=== PATIENT | female | born 1950 | race Caucasian/White ===

== ENCOUNTER → 2017-03-25 | Outpatient (CLI) | payer OTHER ==
--- NOTE | 2017-03-25 15:47 | MAMMOGRAPHY REPORT ---
BILATERAL DIGITAL SCREENING MAMMOGRAM TOMOSYNTHESIS WITH CAD: 03/25/2017 CLINICAL HISTORY: Routine screening. Patient has no complaints. TECHNIQUE: Breast tomosynthesis in addition to standard 2D mammography was performed. Current study was also evaluated with a Computer Aided Detection (CAD) system. COMPARISON: Comparison is made to exams dated: 03/21/2016 mammogram, 03/20/2015 mammogram, 02/17/2014 mammogram, 02/11/2013 mammogram - [facility], 10/23/2010 mammogram, and 10/16/2008 mammogram. BREAST COMPOSITION: There are scattered areas of fibroglandular density in both breasts. FINDINGS: No suspicious masses, calcifications, or areas of architectural distortion are noted in e ither breast. There has been no significant interval change compared to prior exams. IMPRESSION: ACR BI-RADS CATEGORY 1: NEGATIVE There is no mammographic evidence of malignancy. A 1 year screening mammogram is recommended. The p atient will receive written notification of the results. Approximately 10% of breast cancers are not detected with mammography. A negative mammographic repor t should not delay biopsy if a clinically suggestive mass is present. Elza Palma M.D. ah/:03/25/2017 15:14:54 Marine Engine Driver: Shania RAYGOZA(Cristina)(M), [facility] letter sent: Normal 1/2 BI-RADS Code: ACR BI-RADS Category 1: Negative
== END | disposition home or self-care (01) ==
LOC: C.MAMM 10:19
PROVIDERS: ATTEND Family Medicine
DX: Z12.31 Encounter for screening mammogram for malignant neoplasm of breast (principal)

== ENCOUNTER 2020-04-04 13:17 | Observation (INO) ==
[2020-04-04] MEDS ORDERED: KETOROLAC TROMETHAMINE 15 MG/ML VIAL IV STA (15:14)
[2020-04-04] MEDS ORDERED: SODIUM CHLORIDE 0.9% 1000ML 1,000 ML IV ONE (15:14)
[2020-04-04 16:04] LABS: Basophils # (auto) 0.02 K/uL (0-0.2); Basophils % (auto) 0.3 %; Eosinophils % (auto) 1.3 %; Hematocrit (blood only) 39.3 % (37-47); Hemoglobin 12.9 g/dL (12.0-16.0); Immature Granulocytes # (auto) 0.01 K/uL (0.00-0.02); Immature Granulocytes % (auto) 0.1 %; Lymphocytes # (auto) 1.71 K/uL (1.2-3.4); Lymphocytes % (auto) 22.6 %; Mean Corpuscular Hemoglobin 28.6 pg (25-34); Mean Corpuscular Hgb Conc 32.8 g/dL (32-36); Mean Corpuscular Volume 87.1 fL (80-100); Mean Platelet Volume 10.1 fL (7.4-10.4); Monocytes % (auto) 7.9 %; Neutrophils # (auto) 5.13 K/uL (1.4-6.5); Neutrophils % (auto) 67.8 %; Platelet Count 176 K/uL (130-400); RDW Coefficient of Variation 13.3 % (11.5-14.5); RDW Standard Deviation 42.8 fL (36.4-46.3); Red Blood Count 4.51 M/uL (4.2-5.4); White Blood Count 7.57 K/uL (4.8-10.8)
[2020-04-04 16:09] LABS: Appearance Urine Clear (Clear); Bacteria Urine Automated Negative (Negative); Bilirubin Urine Negative (Negative); Blood Urine Negative (Negative); Color Urine Yellow; Epithelial Cell Urine Auto 20-30 /lpf (0-5); Glucose Urine UA Negative (Negative); Ketones Urine Negative (Negative); Leukocyte Esterase Urine 1+ (Negative); Nitrite Urine Negative (Negative); Protein Urine Negative (Negative); RBC Urine Automated 0-4 /hpf (0-4); Urobilinogen Urine Negative (Negative)
[2020-04-04 16:26] LABS: Albumin Level 3.9 gm/dl (3.4-5.0); BUN Creatinine Ratio 16.2 (10-20); Bilirubin Direct 0.1 mg/dl (0-0.2); Calcium 9.7 mg/dl (8.5-10.1); Creatinine Clr Calc Pharmacy 65.2 ml/min; Est GFR (African American) 94.3; Est GFR (Non-African American) 81.3
[2020-04-04 16:29] LABS: Albumin Globulin Ratio 1.1 (0.9-2); Bilirubin,Total 0.4 mg/dl (0.2-1); Globulin 3.7 gm/dl (2.5-4.0); Total Protein 7.6 gm/dl (6.4-8.2)
[2020-04-04] MEDS ORDERED: IOVERSOL 100ml IV PRN (16:42)
--- NOTE | 2020-04-04 17:05 | CT Scan Report ---
CT abd pelvis IV con only CLINICAL HISTORY: Left lower quadrant abdominal pain COMPARISON STUDY: None. TECHNIQUE: The patient was scanned in a dynamic helical fashion during intravenous administration of 93 cc of Optiray 320. A dose lowering technique was utilized adhering to the principles of ALARA. CT DOSE: 774.25 mGycm FINDINGS: Lower chest: There are minor dependent atelectatic changes. Liver: The contrast-enhanced liver is normal in size, contour, and attenuation. There is no intrahepa tic biliary ductal dilatation. The hepatic veins and portal veins are patent. Gallbladder: Unremarkable. Spleen: Normal in size and attenuation. Pancreas: Unremarkable. Adrenal glands: Unremarkable. Kidneys: There is 16mm right renal cyst. Bowel: There are no transition zones to indicate bowel obstruction. The appendix appears normal. Ther e is moderately extensive colonic diverticulosis. At the level of the distal descending colon, there is infiltration of the pericolonic fat surrounding a small droplet of gas. Findings are likely second sagar to acute focal diverticulitis. Epiploic appendagitis with secondary involvement of the diverticul um could appear similar Peritoneum: There is no intraperitoneal free air or abdominal ascites. There is a tiny fat-containing umbilical hernia. Vasculature: The abdominal aorta is normal in course and caliber. Adenopathy: None. Pelvic viscera: There are partially calcified small uterine fibroids. Skeletal structures: No destructive osseous lesions are seen. IMPRESSION: 1. No evidence of bowel obstruction. No evidence of free air 2. Normal appendix 3. Colonic diverticulosis. At the level of the distal descending colon there is infiltration of the p ericolonic fat surrounding a small droplet of gas. The findings are likely secondary to acute diverti culitis. Epiploic appendagitis with secondary involvement of a diverticulum could appear similar ACT 112: Negative or not required by law. Electronically signed by: Miguel Cornelius M.D. 04/04/2020 5:04 PM
[2020-04-04] MEDS ORDERED: CIPROFLOXACIN / D5W 400 MG/200 ML BAG IV STA (17:55)
[2020-04-04] MEDS ORDERED: metroNIDAZOLE 500 MG/100 ML BAG IV STA (17:55)
[2020-04-04] MEDS ORDERED: ACETAMINOPHEN 1,000 MG/100 ML VIAL IV STA (18:28)
--- NOTE | 2020-04-04 19:00 | History & Physical Report ---
Date of Service April 04, 2020 Assessment & Plan (1) Acute diverticulitis: Continue ciprofloxacin IV 400mg BID + metronidazole IV 500mg TID NPO currently given concern for possible microperforation on CT. Can have clear liquid diet in AM as long as no increasing abdominal pain, vitals stable and afebrile overnight. LR 125ml/hr (2) Type 2 diabetes mellitus: Hold metformin Insulin sliding scale for correction only given glucose on admission 96 BSG ACHS HbA1C in AM (3) Hypothyroidism: Continue levothyroxine 50mcg PO daily (4) Hypertension: Continue lisinopril 10mg PO daily (5) Anxiety: Continue Fluoxetine 10mg PO daily, Lorazepam 0.5mg PO BID PRN for anxiety (6) Shoulder pain, right: Outpatient shoulder XR by report of patient negative for fracture. Suspect she has some shoulder impingement on exam but complete rotator cuff tear unlikely given recovery to full ROM on exam today. Follow up with PCP (7) Strain of adductor muscle of thigh: Outpatient pelvic XR negative for fracture per patient. Follow up with PCP (8) DVT prophylaxis: SCDs overnight If staying beyond tomorrow consider chemical prophylaxis Admission and Anticipated Discharge Date Admission Date: 04/04/2020 History of Present Illness Chief Complaint: Left lower quadrant abdominal pain Primary Care Provider: Phyllis Barker MD Aminah Mcconnell is a 69 year old female who presents to the ER at the advice of her PCP due to ongoing right shoulder, hip and left lower quadrant abdominal pain. Her initial symptoms started with shoulder and hip pain after tripping 6 days ago. Her shoulder has slowly been recovering and now has full ROM, outpatient XR performed by her PCP negative for fracture per patient report. No LOC, headache, confusion, loss of concentration from fall. Did not hit her head. Her abdominal pain started on Thursday. No precipitating events. LLQ with no radiation. Severe 9/10 pain initially and went to see PCP and ordered pelvic and shoulder XRs due to the fall but no abdominal imaging at that time. Persistent aching pain since. No unusual foods. No fever, chills, nausea, vomiting, change in bowels, melena or blood in stool. Last colonoscopy was 2 years previously which she reports was normal Allergies Allergy/AdvReac Type Severity Reaction Status Date / Time No Known Allergies Allergy Unverified 04/04/20 15:20 Home Medications Home Medications Medication Instructions Recorded Confirmed Type aspirin 81 mg PO DAILY 04/04/20 04/04/20 History atorvastatin 20 mg PO DAILY 04/04/20 04/04/20 History cetirizine 5 mg PO DAILY 04/04/20 04/04/20 History eletriptan 40 mg PO DAILY PRN 04/04/20 04/04/20 History ergocalciferol (vitamin D2) 1,250 mcg PO MONTHLY 04/04/20 04/04/20 History [Vitamin D2] fluoxetine 10 mg PO DAILY 04/04/20 04/04/20 History levothyroxine 50 mcg PO DAILY 04/04/20 04/04/20 History lisinopril 10 mg PO DAILY 04/04/20 04/04/20 History lorazepam 0.5 mg PO BID PRN 04/04/20 04/04/20 History magnesium 250 mg PO DAILY 04/04/20 04/04/20 History metformin 500 mg PO DAILY 04/04/20 04/04/20 History metronidazole 1 applic TOPICAL BID 04/04/20 04/04/20 History potassium chloride 10 meq PO DAILY 04/04/20 04/04/20 History Past Med/Surg History Medical History Anxiety Hypothyroidism Type 2 diabetes mellitus Social History Preferred Language: Ch[place]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 Beliefs That Will Affect Care: None Current Living Situation: Spouse Other Information That Helps Us Care for You: No Feels Safe at Home: Yes Safety Concerns: Feels Safe At This Time Smoking Status: Never smoker Hx Alcohol Use: No Hx Substance Use: No Review of Systems Review of Systems: All systems reviewed & are unremarkable except as noted in HPI & below Physical Exam Constitutional: WD/WN, vitals as above Eyes: + anicteric sclerae; normal pupil size ENMT: external ear and nose normal, oropharynx normal Neck: trachea midline, no thyromegaly Respiratory: normal respiratory effort, lungs clear to auscultation Cardiovascular: RRR, no murmur, no edema Gastrointestinal (Abdomen): Percussion/Palpation: + abdomen tender (LLQ on deep palpation); no guarding and abdomen not rigid Musculoskeletal: Full ROM of right shoulder with minimal pain. "hip" pain described appears to be her adductors muscles on palpation, no groin pain on hip int/ext rotation Skin: no rashes, warm and dry Neurologic: moves all extremities and awake; not confused Psychiatric: A+Ox3, euthymic affect Results & Data Results & Data ([facility]) Vital Signs (Past 12 Hours) Vital Signs Temp Pulse Pulse Resp BP BP Pulse Ox 04/04/20 18:22 60 16 159/98 H 99 04/04/20 16:45 70 18 135/87 98 04/04/20 15:40 95 04/04/20 14:44 72 18 138/77 99 04/04/20 13:20 36.8 C 74 18 134/[address] abd pelvis IV con only IMPRESSION: 1. No evidence of bowel obstruction. No evidence of free air 2. Normal appendix 3. Colonic diverticulosis. At the level of the distal descending colon there is infiltration of the pericolonic fat surrounding a small droplet of gas. The findings are likely secondary to acute diverticulitis. Epiploic appendagitis with secondary involvement of a diverticulum could appear similar Code Status & VTE Plan Code Status Full VTE Prophylaxis Plan VTE Prophylaxis will be ordered: Yes Reason for no VTE mechanical prophylaxis: Treatment not indicated PG Care Time/CCT Total # of Minutes Spent Total Time Spent with Patient: Total time spent is greater than 50% in coordination of care (as documented) at patient's floor/unit and/or counseling patient: Coding Level of Care Code 52406 Initial Inpt Care Lvl 2 Diagnoses Acute diverticulitis K57.92 Type 2 diabetes mellitus E11.9 Hypothyroidism E03.9 Hypertension I10 Anxiety F41.9 Shoulder pain, right M25.511 Strain of adductor muscle of thigh S76.219A DVT prophylaxis Z29.9
[2020-04-04] MEDS ORDERED: LORazepam 0.5 MG TAB PO PRN (20:02)
[2020-04-04] MEDS ORDERED: GLUCOSE 40% GEL 15 GM TUBE PO PRN (20:40)
[2020-04-04] MEDS ORDERED: CARBOHYDRATES FOR HYPOGLYCEMIA PO PRN (20:40)
[2020-04-04] MEDS ORDERED: GLUCAGON FOR INJ 1 MG VIAL SQ PRN (20:40)
[2020-04-04] MEDS ORDERED: DEXTROSE 50% 50 ML SYRINGE IV PRN (20:40)
[2020-04-04] MEDS ORDERED: GLUCOSE 10 TABS/TUBE PO PRN (20:40)
[2020-04-04] MEDS ORDERED: ONDANSETRON INJ 2 MG/ML 2 ML VIAL IV PRN (20:46)
[2020-04-04] MEDS ORDERED: ALUMINUM/MAGNESIUM SUSP 30 ML UDC PO PRN (20:46)
[2020-04-04] MEDS ORDERED: POLYETHYLENE (MIRALAX) 17 GM PACK PO PRN (20:46)
[2020-04-04] MEDS ORDERED: MAGNESIUM HYDROXIDE SUSP 30 ML UDC PO PRN (20:46)
[2020-04-04] MEDS ORDERED: OXYCODONE HCL IR 5 MG TAB (IMMEDIATE RELEASE) PO PRN (20:46)
[2020-04-04] MEDS ORDERED: INSULIN ASPART 100 UNITS/ML 3 ML PEN SC SCH (21:00)
[2020-04-04] MEDS: LACTATED RINGER'S 1,000 ML IV SCH (21:53)
[2020-04-04] MEDS ORDERED: Nursing to Pharmacy Communication SCH (23:30)
--- NOTE | 2020-04-04 23:42 | Emergency Department Note ---
Impression & Plan Acute diverticulitis, Abdominal pain, acute, left lower quadrant ED Provider Note NAME: RADHA ZUÑIGA AGE: 69 SEX: F ARRIVES VIA: Walk-In INFORMANT: Patient, ED PROVIDER(S): Immanuel Thakkar MD CHIEF COMPLAINT: abdominal pain PLAN: Disposition: Admit MEDICAL DECISION MAKING: The patient is a pleasant 69 y/o woman with a pmhx of HTN, DM2, hypothyroidism who presents to the emergency department with with LLQ abdominal pain that has been on going since Thursday per HPI. Of note, symptoms occur in the setting of having had a mechanical fall on last week onto her right side where she immediately had right sided hip and shoulder pain, which was evaluated by her pcp with reassuring xrays and bloodwork on Thursday. Since Thursday her LLQ pain has worsening. She denies fevers, chills, cough, congestion, n/v/d, urinary sx. On arrival the patient is in NAD, AFVSS. She exhibts mild LLQ tenderness without guarding or rebound. WBC, H/H, platelets wnl. Chemistry without acidosis. LFTs and electrolytes unremarkable. UA negative for infection. CT of the abdomen and pelvis demonstrates findings c/w diverticulitis given patients exam with infiltration of the pericolonic fat surrounding a small droplet of gas at the level of the distal descending colon. Thus, given possibility of microperforation, will admit for IV antibiotics and monitoring of sx. Ordered for Cipro/Flagyl. Patient is agreeable with this. Case d/w Dr. Ross [facility] hospitalist, who will evaluate the patient for admission. Triage Nursing notes reviewed and agree them. Prior medical records reviewed Vital Signs: reviewed and remarkable for no significant abnormalities Differential diagnosis: Appendicitis, ovarian cyst, ovarian torsion, ectopic , TOA, PID, infections, diverticulitis, UTI, obstruction, mesenteric ischemia, aortic pathology, inflammatory bowel disease, renal colic, PUD, pancreatitis, biliary pathology, hernia, volvulus, constipation, as well as other pathologies. ER treatment provided: See below. Diagnostics interpreted by me: Cardiac Monitoring: An order for continuous cardiac monitoring was placed and demonstrated NSR, 72 bpm, no ectopy. Laboratory studies: See below Imaging studies: CT abd pelvis IV con only CLINICAL HISTORY: Left lower quadrant abdominal pain COMPARISON STUDY: None. TECHNIQUE: The patient was scanned in a dynamic helical fashion during intravenous administration of 93 cc of Optiray 320. A dose lowering technique was utilized adhering to the principles of ALARA. CT DOSE: 774.25 mGycm FINDINGS: Lower chest: There are minor dependent atelectatic changes. Liver: The contrast-enhanced liver is normal in size, contour, and attenuation. There is no intrahepatic biliary ductal dilatation. The hepatic veins and portal veins are patent. Gallbladder: Unremarkable. Spleen: Normal in size and attenuation. Pancreas: Unremarkable. Adrenal glands: Unremarkable. Kidneys: There is 16mm right renal cyst. Bowel: There are no transition zones to indicate bowel obstruction. The appendix appears normal. There is moderately extensive colonic diverticulosis. At the level of the distal descending colon, there is infiltration of the pericolonic fat surrounding a small droplet of gas. Findings are likely secondary to acute focal diverticulitis. Epiploic appendagitis with secondary involvement of the diverticulum could appear similar Peritoneum: There is no intraperitoneal free air or abdominal ascites. There is a tiny fat-containing umbilical hernia. Vasculature: The abdominal aorta is normal in course and caliber. Adenopathy: None. Pelvic viscera: There are partially calcified small uterine fibroids. Skeletal structures: No destructive osseous lesions are seen. IMPRESSION: 1. No evidence of bowel obstruction. No evidence of free air 2. Normal appendix 3. Colonic diverticulosis. At the level of the distal descending colon there is infiltration of the pericolonic fat surrounding a small droplet of gas. The findings are likely secondary to acute diverticulitis. Epiploic appendagitis w ith secondary involvement of a diverticulum could appear similar ACT 112: Negative or not required by law. Consultation(s): Case d/w Dr. Ross [facility] hospitalist, who will evaluate the patient for admission. HPI: The patient is a pleasant 69 y/o woman with a pmhx of HTN, DM2, hypothyroidism who presents to the emergency department with with LLQ abdominal pain that has been on going since Thursday per HPI. Of note, symptoms occur in the setting of having had a mechanical fall on last week onto her right side where she immediately had right sided hip and shoulder pain, which was evaluated by her pcp with reassuring xrays and bloodwork on Thursday. Since Thursday her LLQ pain has worsening. She denies fevers, chills, cough, congestion, n/v/d, urinary sx. ROS: See above HPI for pertinent positives & negatives. A total of 10 systems reviewed and were otherwise negative. PAST MEDICAL HISTORY:See Below PAST SURGICAL HISTORY:See Below FAMILY HISTORY:See Below SOCIAL HISTORY:See Below HOME MEDICATIONS:See Below ALLERGIES:See Below VITALS:See Below PHYSICAL EXAMINATION: GENERAL: Awake, alert, relatively well-appearing, in no distress HENT: Normocephalic, atraumatic. Oropharynx with dry mucous membranes and otherwise unremarkable. EYES: Normal conjunctiva. Sclera non-icteric. NECK: Supple. No nuchal rigidity. FROM. No JVD. RESPIRATORY: Clear to auscultation. CARDIAC: Regular rate, normal rhythm. Extremities warm and well perfused. Pulses equal. ABDOMEN: Soft, non-distended. Mild LLQ tenderness to palpation. No rebound or guarding. No masses. RECTAL: Deferred. MUSCULOSKELETAL: Chest examination reveals no tenderness. The back is symmetrical on inspection without obvious abnormality. There is no CVA tenderness to palpation. No joint edema. LOWER EXTREMITIES: Calves are equal size bilaterally and non-tender. No edema. No discoloration. NEURO: Normal sensorium. No sensory or motor deficits noted. SKIN: No rash or jaundice noted. ED COURSE: Immanuel Thakkar MD Past Med/Surg History Medical History Anxiety Hypothyroidism Type 2 diabetes mellitus Social History Preferred Language: Tajik 911 Telecommunicator Required: No Beliefs That Will Affect Care: None Current Living Situation: Spouse Other Information That Helps Us Care for You: No Feels Safe at Home: Yes Safety Concerns: Feels Safe At This Time Smoking Status: Never smoker Hx Alcohol Use: No Hx Substance Use: No Allergies Allergies Allergy/AdvReac Type Severity Reaction Status Date / Time No Known Allergies Allergy Unverified 04/04/20 15:20 Home Meds Home Medications Medication Instructions Recorded Confirmed aspirin 81 mg PO DAILY 04/04/20 04/04/20 atorvastatin 20 mg PO DAILY 04/04/20 04/04/20 cetirizine 5 mg PO DAILY 04/04/20 04/04/20 eletriptan 40 mg PO DAILY PRN 04/04/20 04/04/20 ergocalciferol (vitamin D2) 1,250 mcg PO MONTHLY 04/04/20 04/04/20 [Vitamin D2] fluoxetine 10 mg PO DAILY 04/04/20 04/04/20 levothyroxine 50 mcg PO DAILY 04/04/20 04/04/20 lisinopril 10 mg PO DAILY 04/04/20 04/04/20 lorazepam 0.5 mg PO BID PRN 04/04/20 04/04/20 magnesium 250 mg PO DAILY 04/04/20 04/04/20 metformin 500 mg PO DAILY 04/04/20 04/04/20 metronidazole 1 applic TOPICAL BID 04/04/20 04/04/20 potassium chloride 10 meq PO DAILY 04/04/20 04/04/20 Results & Data (ED) Vital Signs Vital Signs - 24 hr 04/04/20 13:20 04/04/20 14:44 04/04/20 15:40 Temperature 36.8 C Temperature Source Oral Pulse Rate 74 Pulse Rate [Left Finger] 72 Respiratory Rate 18 18 Respiratory Effort / Characteristics Non-Labored Spontaneous Respiratory Depth Normal Normal Blood Pressure 134/81 Blood Pressure [Left Arm] 138/77 Blood Pressure Mean 98 Blood Pressure Mean [Left Arm] 97 Pulse Oximetry 96 99 95 Oxygen Delivery Method Room Air Room Air Room Air Sepsis Recent Fever Within 48 Hours No Sepsis New/Unexplained Change in Mental Status No Sepsis Action Taken by Nursing No Action Required 04/04/20 16:45 04/04/20 18:22 Temperature Temperature Source Pulse Rate Pulse Rate [Left Finger] 70 60 Respiratory Rate 18 16 Respiratory Effort / Characteristics Respiratory Depth Blood Pressure Blood Pressure [Left Arm] 135/87 159/98 H Blood Pressure Mean Blood Pressure Mean [Left Arm] 103 118 Pulse Oximetry 98 99 Oxygen Delivery Method Room Air Room Air Sepsis Recent Fever Within 48 Hours Sepsis New/Unexplained Change in Mental Status Sepsis Action Taken by Nursing Laboratory Data Attestation: I reviewed the patient's lab results. Result diagrams: 04/04/20 15:45 04/04/20 15:45 Lab Results 04/04/20 04/04/20 04/04/20 Range/Units 15:45 15:45 15:50 WBC 7.57 (4.8-10.8) K/uL RBC 4.51 (4.2-5.4) M/uL Hgb 12.9 (12.0-16.0) g/dL Hct 39.3 (37-47) % MCV 87.1 (80-100) fL MCH 28.6 (25-34) pg MCHC 32.8 (32-36) g/dL RDW Std Deviation 42.8 (36.4-46.3) fL RDW Coeff of Valentin 13.3 (11.5-14.5) % Plt Count 176 (130-400) K/uL MPV 10.1 (7.4-10.4) fL Immature Gran % (Auto) 0.1 % Neut % (Auto) 67.8 % Lymph % (Auto) 22.6 % Stanley % (Auto) 7.9 % Eos % (Auto) 1.3 % Baso % (Auto) 0.3 % Immature Gran # (Auto) 0.01 (0.00-0.02) K/uL Neut # (Auto) 5.13 (1.4-6.5) K/uL Lymph # (Auto) 1.71 (1.2-3.4) K/uL Stanley # (Auto) 0.60 H (0.11-0.59) K/uL Eos # (Auto) 0.10 (0-0.5) K/uL Baso # (Auto) 0.02 (0-0.2) K/uL Sodium 137 (136-145) mmol/L Potassium 4.0 (3.5-5.1) mmol/L Chloride 104 (98-107) mmol/L Carbon Dioxide 28 (21-32) mmol/L Anion Gap 5.0 (3-11) BUN 12 (7-18) mg/dl Creatinine 0.75 (0.6-1.2) mg/dl Est Cr Clr Drug Dosing 65.2 ml/min Est GFR ( Amer) 94.3 Est GFR (Non-Af Amer) 81.3 BUN/Creatinine Ratio 16.2 (10-20) Glucose 91 (70-99) mg/dl Calcium 9.7 (8.5-10.1) mg/dl Total Bilirubin 0.4 (0.2-1) mg/dl Direct Bilirubin 0.1 (0-0.2) mg/dl AST 14 L (15-37) U/L ALT 34 (12-78) U/L Alkaline Phosphatase 89 (45-117) U/L Total Protein 7.6 (6.4-8.2) gm/dl Albumin 3.9 (3.4-5.0) gm/dl Globulin 3.7 (2.5-4.0) gm/dl Albumin/Globulin Ratio 1.1 (0.9-2) Lipase 150 (73-393) U/L Urine Color Yellow Urine Appearance Clear (Clear) Urine pH 5.0 (4.5-7.5) Ur Specific [place] 1.020 (1.000-1.030) Urine Protein Negative (Negative) Urine Glucose (UA) Negative (Negative) Urine Ketones Negative (Negative) Urine Blood Negative (Negative) Urine Nitrite Negative (Negative) Urine Bilirubin Negative (Negative) Urine Urobilinogen Negative (Negative) Ur Leukocyte Esterase 1+ H (Negative) Urine WBC (Auto) 10-30 H (0-5) /hpf Urine RBC (Auto) 0-4 (0-4) /hpf U Hyaline Cast (Auto) 1-5 (0-5) /lpf U Epithel Cells (Auto) 20-30 H (0-5) /lpf Urine Bacteria (Auto) Negative (Negative) Administered Medications Lactated Ringer's (Lr) 1,000 mls @ 125 mls/hr IV .Q8H [facility]AID Stop: 05/04/20 20:44 Last Infusion: 04/05/20 02:14 Dose: 0 mls/hr Documented by: [id number] Admin: 04/04/20 21:53 Dose: 125 mls/hr Documented by: [id number] Metronidazole (Flagyl) 500 mg in 100 mls @ 100 mls/hr IV Q8H [facility] Stop: 04/12/20 01:59 Last Admin: 04/05/20 02:14 Dose: 100 mls/hr Documented by: [id number] Insulin Aspart (Novolog Flexpen) 0 units SC Q6 [facility]AID Stop: 05/05/20 00:00 Last Admin: 04/05/20 00:48 Dose: Not Given Documented by: [id number] Cosigned by: [id number] Ioversol (Optiray 320 100ml) 93 ml IV ONCE PRN PRN Reason: Interaction Checking Stop: 04/08/20 16:41 Last Admin: 04/04/20 16:42 Dose: 93 ml Documented by: [id number] Discontinued Medications Sodium Chloride (Nss 1000ml) 1,000 mls @ 999 mls/hr IV .Q1H1M ONE Stop: 04/04/20 16:14 Last Infusion: 04/04/20 18:32 Dose: 0 mls/hr Documented by: [id number] Infusion: 04/04/20 17:52 Dose: 0 mls/hr Documented by: [id number] Infusion: 04/04/20 16:45 Dose: 0 mls/hr Documented by: [id number] Admin: 04/04/20 15:45 Dose: 999 mls/hr Documented by: [id number] Ciprofloxacin (Cipro) 400 mg in 200 mls @ 100 mls/hr IV NOW STA; Protocol Stop: 04/04/20 19:54 Last Infusion: 04/04/20 20:55 Dose: 0 mls/hr Documented by: [id number] Admin: 04/04/20 18:14 Dose: 100 mls/hr Documented by: [id number] Metronidazole (Flagyl) 500 mg in 100 mls @ 100 mls/hr IV NOW STA Stop: 04/04/20 18:54 Last Infusion: 04/04/20 20:25 Dose: 0 mls/hr Documented by: [id number] Admin: 04/04/20 18:14 Dose: 100 mls/hr Documented by: [id number] Acetaminophen (Ofirmev) 1,000 mg in 100 mls @ 400 mls/hr IV NOW STA Stop: 04/04/20 18:42 Last Infusion: 04/04/20 20:24 Dose: 0 mls/hr Documented by: [id number] Admin: 04/04/20 18:44 Dose: 400 mls/hr Documented by: [id number] Insulin Aspart (Novolog Flexpen) 0 units SC ACHS [facility]AID Stop: 05/04/20 20:59 Last Admin: 04/04/20 21:54 Dose: Not Given Documented by: [id number] Cosigned by: [id number] Ketorolac Tromethamine (Toradol) 15 mg IV NOW STA Stop: 04/04/20 15:15 Last Admin: 04/04/20 15:45 Dose: 15 mg Documented by: [id number] Blood Pressure Blood Pressure Findings: Normal blood pressure Discharge Plan Visit Data *Final* Discharge Date/Time: 04/04/20 19:39 Chief Complaint: Fall Stated Complaint: FALL,LANDED ON RT SIDE,SHARP PAIN ON LEFT SIDE ED Provider: Immanuel Thakkar Discharge Problem: Acute diverticulitis, Abdominal pain, acute, left lower quadrant Patient Disposition: Admitted As Inpatient Discharge Instructions Interventions: ED Discharge Assessment Last Done: 04/04/20 19:39
[2020-04-05] MEDS: INSULIN ASPART 100 UNITS/ML 3 ML PEN SC SCH ×5 (00:48→20:42)
[2020-04-05] MEDS: metroNIDAZOLE 500 MG/100 ML BAG IV SCH ×3 (02:14→18:11)
[2020-04-05] MEDS: ACETAMINOPHEN 325 MG TAB PO PRN ×2 (06:09→10:43)
[2020-04-05] MEDS: LEVOTHYROXINE SODIUM 50 MCG TABLET PO SCH (06:09)
[2020-04-05] MEDS: CIPROFLOXACIN / D5W 400 MG/200 ML BAG IV SCH ×2 (06:12→18:11)
[2020-04-05] MEDS: LACTATED RINGER'S 1,000 ML IV SCH ×3 (06:12→16:13)
[2020-04-05 07:19] LABS: Basophils # (auto) 0.01 K/uL (0-0.2); Basophils % (auto) 0.2 %; Eosinophils # (auto) 0.12 K/uL (0-0.5); Eosinophils % (auto) 2.1 %; Hematocrit (blood only) 34.6 % (37-47); Hemoglobin 11.6 g/dL (12.0-16.0); Immature Granulocytes # (auto) 0.02 K/uL (0.00-0.02); Immature Granulocytes % (auto) 0.3 %; Lymphocytes # (auto) 1.39 K/uL (1.2-3.4); Lymphocytes % (auto) 23.8 %; Mean Corpuscular Hemoglobin 29.1 pg (25-34); Mean Corpuscular Hgb Conc 33.5 g/dL (32-36); Mean Corpuscular Volume 86.7 fL (80-100); Mean Platelet Volume 10.1 fL (7.4-10.4); Monocytes # (auto) 0.34 K/uL (0.11-0.59); Monocytes % (auto) 5.8 %; Neutrophils # (auto) 3.96 K/uL (1.4-6.5); Neutrophils % (auto) 67.8 %; Platelet Count 156 K/uL (130-400); RDW Coefficient of Variation 13.2 % (11.5-14.5); RDW Standard Deviation 42.1 fL (36.4-46.3); Red Blood Count 3.99 M/uL (4.2-5.4); White Blood Count 5.84 K/uL (4.8-10.8)
[2020-04-05 07:31] LABS: Albumin Level 3.2 gm/dl (3.4-5.0); BUN Creatinine Ratio 15.8 (10-20); Calcium 8.5 mg/dl (8.5-10.1); Creatinine Clr Calc Pharmacy 64.1 ml/min; Est GFR (African American) 95.8; Est GFR (Non-African American) 82.7; Potassium 4.2 mmol/L (3.5-5.1)
[2020-04-05 07:32] LABS: Estimated Average Glucose 134 mg/dl; Hemoglobin A1C 6.3 % (4.5-5.6)
[2020-04-05 07:37] LABS: Bilirubin,Total 0.5 mg/dl (0.2-1); Globulin 3.1 gm/dl (2.5-4.0); Total Protein 6.3 gm/dl (6.4-8.2)
[2020-04-05] MEDS: ATORVASTATIN 20 MG TAB PO SCH (09:21)
[2020-04-05] MEDS: ASPIRIN 81 MG ECTAB PO SCH (09:21)
[2020-04-05] MEDS: FLUOXETINE HCL 10 MG CAP PO SCH (09:22)
[2020-04-05] MEDS: CETIRIZINE HCL 10 MG TABLET PO SCH (09:22)
[2020-04-05] MEDS: MAGNESIUM OXIDE 400 MG TAB PO SCH (09:22)
[2020-04-05] MEDS: lisinopriL 10 MG TAB PO SCH (09:22)
--- NOTE | 2020-04-05 14:12 | Hospitalist Progress Note ---
Date of Service April 05, 2020 Assessment & Plan (1) Acute diverticulitis: Continue ciprofloxacin IV 400mg BID + metronidazole IV 500mg TID Given clear liquid diet this afternoon, if she tolerates will advance in the morning D/C IVF (2) Type 2 diabetes mellitus: Hold metformin Insulin sliding scale for correction only given glucose on admission 96 BSG ACHS A1c 6.3 - will need to follow up with pcp (3) Hypothyroidism: Continue levothyroxine 50mcg PO daily (4) Hypertension: Continue lisinopril 10mg PO daily (5) Anxiety: Continue Fluoxetine 10mg PO daily, Lorazepam 0.5mg PO BID PRN for anxiety (6) Shoulder pain, right: Outpatient shoulder XR by report of patient negative for fracture. Suspect she has some shoulder impingement on exam but complete rotator cuff tear unlikely given recovery to full ROM on exam today. Follow up with PCP (7) Strain of adductor muscle of thigh: Outpatient pelvic XR negative for fracture per patient. Follow up with PCP (8) DVT prophylaxis: SCDs overnight, encourage ambulation Admission and Anticipated Discharge Date Admission Date: April 04, 2020 Subjective Ms. Mcconnell is feeling better today, less painful, feels hungry. Bowel movement this afternoon per chart ROS Constitutional: no chills, aches, sweats or fever Respiratory: no sob,cough, sputum, or wheezing Cardiac: no chest pain, palpitations, edema, orthopnea or lightheadedness GI: no abdominal pain, nausea, vomiting, diarrhea or constipation : no dysuria or hesitancy Extremities: no joint pain or weakness Skin: no rash All other systems reviewed and negative Physical Exam Physical Exam: General: no distress Eyes: normal inspection, PERLL Respiratory: chest non tender, clear to auscultation, normal breath sounds, no respiratory distress, no accessory muscle use Cardiac: regular rate and rhythm, no rub or gallop, no murmur, no edema, no jvd GI/: active bowel sounds, no abd pain or tenderness, soft, non distended Extremities: normal range of motion, normal strength, non tender Neuro/Psych: alert and oriented x 3, normal mood and affect Skin: normal color, dry Results & Data Results & Data ([facility] [place]) Vital Signs (Past 12 Hours) Vital Signs Temp Pulse Resp BP Pulse Ox 04/05/20 07:44 36.5 C 57 L 16 126/76 93 PG Care Time/CCT Total # of Minutes Spent Total Time Spent with Patient: Total time spent is greater than 50% in coordination of care (as documented) at patient's floor/unit and/or counseling patient: Coding Level of Care Code 05313 Subseq Hosp Care Lvl 2 Diagnoses Acute diverticulitis K57.92 Type 2 diabetes mellitus E11.9 Hypothyroidism E03.9 Hypertension I10 Anxiety F41.9 Shoulder pain, right M25.511 Strain of adductor muscle of thigh S76.219A DVT prophylaxis Z29.9
[2020-04-05] MEDS ORDERED: Nursing to Pharmacy Communication SCH (15:15)
[2020-04-05] MEDS ORDERED: KETOROLAC TROMETHAMINE 15 MG/ML VIAL IV PRN (19:00)
[2020-04-05] MEDS: SUMAtriptan succinate 25 MG TAB PO PRN (20:40)
[2020-04-06] MEDS: metroNIDAZOLE 500 MG/100 ML BAG IV SCH ×2 (02:47→10:09)
[2020-04-06] MEDS: LEVOTHYROXINE SODIUM 50 MCG TABLET PO SCH (06:23)
[2020-04-06] MEDS: CIPROFLOXACIN / D5W 400 MG/200 ML BAG IV SCH (06:44)
[2020-04-06] MEDS: SUMAtriptan succinate 25 MG TAB PO PRN (07:38)
[2020-04-06] MEDS: INSULIN ASPART 100 UNITS/ML 3 ML PEN SC SCH ×2 (08:32→12:12)
[2020-04-06] MEDS: lisinopriL 10 MG TAB PO SCH (08:40)
[2020-04-06] MEDS: ASPIRIN 81 MG ECTAB PO SCH (08:40)
[2020-04-06] MEDS: CETIRIZINE HCL 10 MG TABLET PO SCH (08:40)
[2020-04-06] MEDS: MAGNESIUM OXIDE 400 MG TAB PO SCH (08:40)
[2020-04-06] MEDS: ATORVASTATIN 20 MG TAB PO SCH (08:42)
[2020-04-06] MEDS: FLUOXETINE HCL 10 MG CAP PO SCH (08:42)
[2020-04-06 08:53] LABS: Basophils # (auto) 0.03 K/uL (0-0.2); Basophils % (auto) 0.6 %; Eosinophils # (auto) 0.11 K/uL (0-0.5); Hematocrit (blood only) 39.3 % (37-47); Hemoglobin 12.6 g/dL (12.0-16.0); Immature Granulocytes # (auto) 0.01 K/uL (0.00-0.02); Immature Granulocytes % (auto) 0.2 %; Lymphocytes # (auto) 1.28 K/uL (1.2-3.4); Lymphocytes % (auto) 23.5 %; Mean Corpuscular Hgb Conc 32.1 g/dL (32-36); Mean Corpuscular Volume 87.3 fL (80-100); Mean Platelet Volume 10.1 fL (7.4-10.4); Monocytes # (auto) 0.22 K/uL (0.11-0.59); Neutrophils % (auto) 69.7 %; Platelet Count 180 K/uL (130-400); RDW Coefficient of Variation 13.2 % (11.5-14.5); RDW Standard Deviation 42.3 fL (36.4-46.3); White Blood Count 5.45 K/uL (4.8-10.8)
[2020-04-06] MEDS ORDERED: KETOROLAC TROMETHAMINE 15 MG/ML VIAL IV ONE (09:25)
[2020-04-06 09:35] LABS: Albumin Globulin Ratio 1.1 (0.9-2); Albumin Level 3.6 gm/dl (3.4-5.0); BUN Creatinine Ratio 7.7 (10-20); Bilirubin,Total 0.4 mg/dl (0.2-1); Calcium 9.1 mg/dl (8.5-10.1); Creatinine Clr Calc Pharmacy 57.8 ml/min; Est GFR (African American) 84.6; Globulin 3.2 gm/dl (2.5-4.0); Potassium 3.6 mmol/L (3.5-5.1); Total Protein 6.8 gm/dl (6.4-8.2)
--- NOTE | 2020-04-06 11:56 | Discharge Summary ---
Date of Service April 06, 2020 Admission HPI Per Admitting Provider Aminah Mcconnell is a 69 year old female who presents to the ER at the advice of her PCP due to ongoing right shoulder, hip and left lower quadrant abdominal pain. Her initial symptoms started with shoulder and hip pain after tripping 6 days ago. Her shoulder has slowly been recovering and now has full ROM, outpatient XR performed by her PCP negative for fracture per patient report. No LOC, headache, confusion, loss of concentration from fall. Did not hit her head. Her abdominal pain started on Thursday. No precipitating events. LLQ with no radiation. Severe 9/10 pain initially and went to see PCP and ordered pelvic and shoulder XRs due to the fall but no abdominal imaging at that time. Persistent aching pain since. No unusual foods. No fever, chills, nausea, vomiting, change in bowels, melena or blood in stool. Last colonoscopy was 2 years previously which she reports was normal Principal Diagnosis Diverticulitis Discharge Exam Constitutional WD/WN, vitals as above Respiratory normal respiratory effort, lungs clear to auscultation Cardiovascular RRR, no murmur, no edema Gastrointestinal (Abdomen) Inspection/Auscultation: abdomen normal to inspection and normal bowel sounds; abdomen not distended Percussion/Palpation: abdomen soft; abdomen nontender Musculoskeletal no cyanosis or clubbing, extremities motor strength 5/5 Skin no rashes, warm and dry Neurologic CN's II-XI intact bilaterally, moves all extremities and awake Psychiatric A+Ox3, euthymic affect Discharge Data Allergies Allergy/AdvReac Type Severity Reaction Status Date / Time No Known Allergies Allergy Unverified 04/04/20 15:20 Consultations 04/04/20 18:28 ED Decision to Admit Stat Ordered Studies 04/04/20 15:16 CT abd pelvis IV con only Stat Hospital Course (1) Acute diverticulitis: Continue ciprofloxacin IV 400mg BID + metronidazole IV 500mg TID Given clear liquid diet this afternoon, if she tolerates will advance in the morning Slowly advance diet from low fiber to high fiber (2) Type 2 diabetes mellitus: Hold metformin while inpatient - can resume tomorrow Insulin sliding scale for correction while inpatient BSG ACHS A1c 6.3 (3) Hypothyroidism: Continue levothyroxine 50mcg PO daily (4) Hypertension: Continue lisinopril 10mg PO daily (5) Anxiety: Continue Fluoxetine 10mg PO daily, Lorazepam 0.5mg PO BID PRN for anxiety (6) Shoulder pain, right: Outpatient shoulder XR by report of patient negative for fracture. Suspect she has some shoulder impingement on exam but complete rotator cuff tear unlikely given recovery to full ROM on exam today. Follow up with PCP (7) Strain of adductor muscle of thigh: Outpatient pelvic XR negative for fracture per patient. No fracture on abdome/pelvis CT Follow up with PCP Some pain in that area today - relieved with dose of Toradol (8) Migraine headache: Unilateral throbbing frontal headache over right side. Mild nausea associated. Given sumatriptan with some relief and then 1 dose of Toradol when headache returned this morning which relieved her pain. (9) DVT prophylaxis: SCDs overnight, encourage ambulation Total Time Total Time Spent Total Time Spent (In Minutes): greater than 30 minutes Discharge Plan Discharge Items Patient Disposition: Home - Self-Care Reason For Visit: ACUTE DIVERTICULITIS Discharge Diagnosis: Diverticulitis Activity: Resume your previous activity Activity Comment: gradually as tolerated Non-emergency contact: Primary Care Provider Call non-emergency contact if: you have any medication questions, your symptoms worsen and you have a fever Follow-up/Referrals: Phyllis Barker MD [Primary Care Provider] - (Follow up with your primary care provider in 1 week ) Diet: Carb Consistent or DM2 Addtl Attending Provider Instructions: (1) Acute diverticulitis: Continue ciprofloxacin twice per day + metronidazole 500mg three times per day. See enclosed information on discharge instructions for diverticulitis. You will eat a low fiber diet over the next days and advance to high fiber slowly as you are able to tolerate (2) Type 2 diabetes mellitus: You can resume your metformin tomorrow morning to avoid interaction with the c ontrast dye given during your CT Your A1c was 6.3 (3) Migraine headache You were given sumatriptan and toradol for your migraine today. Your should wait until tomorrow to take anymore eletriptan. You can take your Excedrin Migraine if you have further pain or just Tylenol 1000 mg if the aspirin in the Excedrin is hard on your stomach. Pending Studies at Discharge: No Stand-Alone Forms: My [facility] [employer], Smoking Cessation Medications and DC Order Prescriptions: New ciprofloxacin HCl 500 mg tablet 500 mg PO BID Qty: 14 RF: 0 metronidazole 500 mg tablet 500 mg PO TID Qty: 21 RF: 0 Continued metformin 500 mg tablet 500 mg PO DAILY RF: 0 atorvastatin 20 mg tablet 20 mg PO DAILY RF: 0 levothyroxine 50 mcg tablet 50 mcg PO DAILY RF: 0 fluoxetine 10 mg capsule 10 mg PO DAILY RF: 0 potassium chloride 10 mEq Capsule, Extended Release 10 meq PO DAILY RF: 0 cetirizine 10 mg Tablet 5 mg PO DAILY RF: 0 aspirin 81 mg Tablet,Delayed Release (Dr/Ec) 81 mg PO DAILY RF: 0 lorazepam 0.5 mg Tablet 0.5 mg PO BID PRN (Reason: Anxiety) RF: 0 lisinopril 10 mg Tablet 10 mg PO DAILY RF: 0 metronidazole 0.75 % Cream 1 applic TOPICAL BID RF: 0 magnesium 250 mg Tablet 250 mg PO DAILY RF: 0 ergocalciferol (vitamin D2) [Vitamin D2] 1,250 mcg (50,000 unit) Capsule 1,250 mcg PO MONTHLY RF: 0 eletriptan 40 mg Tablet 40 mg PO DAILY PRN (Reason: Headache) RF: 0 Discharge Orders: Discharge Order (Routine); Ordered 04/06/20 Ordered By: Blossom Milan/Other Patient Handouts: Discharge Instructions for Diverticulitis, Diabetes Carbs Fats Protein, ED Diet High Fiber Admission Data Admit Date/Time: 04/04/20 19:23 Attending Provider: Bro Greene Admit Provider: Jonn Ross Primary Care Provider: Phyllis Barker Other Providers: Bro Greene Other Interventions: Discharge Summary Assessment (RN) Last Done: 04/06/20 12:00 DC Date/Time DO NOT enter until pt leaves facility: 04/06/20 14:05 Supervising Physician Co-Signing Physician Notes I supervised Blossom Villasenor NP on this patient's care. I examined the patient today independently of her. I discussed the plan of care with her with the plan being as written in her note except for any following changes/exceptions: None. In no distress today. Ready to go home. Had a BM today. Coding Level of Care Code D/C Day Management >30 mins Diagnoses Acute diverticulitis K57.92 Type 2 diabetes mellitus E11.9 Hypothyroidism E03.9 Hypertension I10 Anxiety F41.9 Shoulder pain, right M25.511 Strain of adductor muscle of thigh S76.219A Migraine headache G43.909 DVT prophylaxis Z29.9
[2020-04-29] MEDS ORDERED: ERGOCALCIFEROL 50,000 UNITS CAP PO SCH (09:00)
== END 2020-04-06 14:05 | disposition home or self-care (01) ==
LOC: ED 13:17 → SUATTDRO 19:23 → 3N 19:23 → INTOOBSV 19:23 → 3N 19:39

== ENCOUNTER 2024-12-18 09:06 | Inpatient (IN) ==
--- NOTE | 2024-12-18 09:20 | Emergency Department Note ---
Impression & Plan Lumbar back pain, Acute lumbar radiculopathy ED Provider Note CHIEF COMPLAINT: Back pain HISTORY OF PRESENT ILLNESS: This 74-year-old female patient presents to the emergency department via private vehicle for evaluation of severe pain in the right back, leg, and knee. She reports she has been seen by orthopedics for this pain. She states she has a history of a traumatic fall, which caused the pain. She states the pain is so severe she is currently unable to tolerate it. She is pending MRI of her low spine on 01/04. She denies loss of sensation, numbness or tingling, loss of bowel or bladder, or numbness or tingling in the groin. She reports the pain begins in the right lumbar spine and extends to the right buttocks, and down the lateral aspect of the right leg. She reports full strength. She is neurovascularly intact. REVIEW OF SYSTEMS: A review of systems was performed with positives and pertinent negatives listed in the history of present illness. All other systems were reviewed and are negative. ALLERGIES: See below MEDICATIONS: See below PMH: See below PHYSICAL EXAM: VITALS: Vitals are noted on the nurse's note and reviewed by myself. Vital signs stable. GENERAL: 74-year-old female, in no acute distress, nondiaphoretic, well- developed well-nourished. SKIN: The skin was without rashes, erythema, edema, or bruising. HEAD: Normocephalic atraumatic. HEART: Regular rate and rhythm without murmurs gallops or rubs. LUNGS: Clear to auscultation bilaterally without wheezes, rales or rhonchi. No retractions or accessory muscle use. ABDOMEN: Positive bowel sounds x 4. Soft, nontender, without masses or organomegaly. Aguirre sign negative. No guarding or rebound tenderness. MUSCULOSKELETAL: TTP right paraspinous lumbar region, extending into right buttocks. Full ROM, right hip, right knee, right ankle. Sensation intact to dull and sharp, RLE. DP pulse intact. Strength 5/5. NEURO: Patient was alert and oriented to person place and time. No focal neurological deficits. MEDICAL DECISION MAKING: The patient is a 74-year-old female who arrives to the emergency department for evaluation of the above-stated complaint. CT imaging of the lumbar spine was obtained which per my interpretation shows multilevel degenerative changes, slightly asymmetric on the right with L3 nerve root impingement noted L2-L3. Disc bulge asymmetric to the right with mild central canal and right foraminal orifice narrowing L3-L4. Mild abutment of the origin and subarticular right L4 nerve root. Minimal far lateral left L4 nerve root abutment. The patient was provided IM Toradol, IM dexamethasone, topical Lidoderm, oral methocarbamol, and oral acetaminophen. Upon reevaluation she reports no reduction in her pain. An attempt to add oral tramadol was made, however it was unsuccessful to control her pain. She was offered IV morphine for pain control, which only helped slightly. At that time admission was considered pending MRI imaging results. MRI imaging shows advanced multilevel degenerative changes of the lumbar spine resulting in spinal canal and neural foraminal stenosis. I spoke with Dr Ayala from ortho spine, who stated if the patient is able to ambulate, and pain is under control she may be discharged home and follow-up on an outpatient basis. When I spoke with the patient regarding the plan of care, she reported her pain had returned and was severe. She was provided a another dose of oral tramadol, and a dose of oral acetaminophen, and ibuprofen. She is unable to ambulate, or sit comfortably. Admission is indicated at this time. I spoke with case management to facilitate contact with the [facility] hospitalist group. Dr. Ross agreed to evaluate the patient, and accept the patient under his care for hospital admission. Please refer to his documentation as well as Dr. Ayala's documentation for further patient workup and care. DIFFERENTIAL DIAGNOSIS: Musculoskeletal, disc herniation, fracture, metastatic disease, cord compression, discitis, sciatica, cauda equina, infection, aortic disease, renal colic, gastrointestinal, as well as other pathologies. The patient's case was discussed with Dr. Benjamin, who agreed with my evaluation and treatment plan. The chart was completed utilizing [employer] Speech voice recognition software. Grammatical errors, random word insertions, pronoun errors, and incomplete sentences are an occasional consequence of this system due to software limitations, ambient noise, and hardware issues. Any formal questions or concerns about the content, text, or information contained within the body of this dictation should be directly addressed to the physician for clarification. 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 Beliefs That Will Affect Care: None Current Living Situation: Spouse Feels Safe at Home: Yes Assistive Devices: None Allergies Allergies Allergy/AdvReac Type Severity Reaction Status Date / Time No Known Allergies Allergy Unverified 12/18/24 10:43 Home Meds Home Medications Medication Instructions Recorded Confirmed aspirin 81 mg tablet,delayed 81 mg PO Q OTHER DAY 04/04/20 12/18/24 release atorvastatin 20 mg tablet 20 mg PO DAILY 04/04/20 12/18/24 cetirizine 10 mg tablet 10 mg PO DAILY allergies 04/04/20 12/18/24 levothyroxine 50 mcg tablet 50 mcg PO DAILY 04/04/20 12/18/24 lisinopril 10 mg tablet 10 mg PO DAILY 04/04/20 12/18/24 magnesium 250 mg tablet 500 mg PO DAILY 04/04/20 12/18/24 gabapentin 300 mg capsule 300 mg PO BID 12/18/24 12/18/24 prednisone 20 mg tablet 20 mg PO UD 12/18/24 12/18/24 Results & Data (ED) Vital Signs Vital Signs - 24 hr 12/18/24 09:10 12/18/24 10:28 12/18/24 11:46 Temperature 36.5 C Temperature Source Oral Pulse Rate 76 Pulse Rate [Right Finger] 63 60 Pulse Rhythm [Right Finger] Regular Regular Pulse Strength [Right Finger] Normal Normal Respiratory Rate 18 18 16 Respiratory Effort / Characteristics Non-Labored Spontaneous Non-Labored Spontaneous Respiratory Depth Normal Normal Respiratory Pattern Regular Regular Blood Pressure 182/83 H Blood Pressure [Right Arm] 171/128 H 152/92 H Blood Pressure Mean 116 Blood Pressure Mean [Right Arm] 142 112 Blood Pressure Position Sitting Blood Pressure Position [Right Arm] Sitting Sitting Pulse Oximetry 98 96 99 Oxygen Delivery Method Room Air Room Air Sepsis Recent Fever Within 48 Hours No Sepsis New/Unexplained Change in Mental Status No Sepsis Action Taken by Nursing No Action Required 12/18/24 14:00 12/18/24 15:30 12/18/24 16:30 Temperature Temperature Source Pulse Rate Pulse Rate [Right Finger] 67 67 66 Pulse Rhythm [Right Finger] Regular Pulse Strength [Right Finger] Normal Respiratory Rate 16 18 16 Respiratory Effort / Characteristics Non-Labored Spontaneous Non-Labored Spontaneous Respiratory Depth Normal Normal Respiratory Pattern Regular Blood Pressure Blood Pressure [Right Arm] 164/134 H 128/93 174/99 H Blood Pressure Mean Blood Pressure Mean [Right Arm] 144 104 124 Blood Pressure Position Blood Pressure Position [Right Arm] Sitting Pulse Oximetry 94 94 94 Oxygen Delivery Method Room Air Room Air Room Air Sepsis Recent Fever Within 48 Hours Sepsis New/Unexplained Change in Mental Status Sepsis Action Taken by Nursing 12/18/24 18:23 Temperature Temperature Source Pulse Rate Pulse Rate [Right Finger] 68 Pulse Rhythm [Right Finger] Pulse Strength [Right Finger] Respiratory Rate 17 Respiratory Effort / Characteristics Respiratory Depth Respiratory Pattern Blood Pressure Blood Pressure [Right Arm] 173/84 H Blood Pressure Mean Blood Pressure Mean [Right Arm] 113 Blood Pressure Position Blood Pressure Position [Right Arm] Pulse Oximetry 96 Oxygen Delivery Method Room Air Sepsis Recent Fever Within 48 Hours Sepsis New/Unexplained Change in Mental Status Sepsis Action Taken by [place] Medications Current Medication List: was personally reviewed by me Laboratory Data Attestation: I reviewed the patient's lab results. 12/18/24 13:39 12/18/24 13:39 Lab Results 12/18/24 12/18/24 Range/Units 13:32 13:39 WBC 12.38 H (4.8-10.8) K/ul RBC 5.20 (4.20-5.40) M/uL Hgb 14.8 (12.0-16.0) g/dl Hct 44.0 (37.0-47.0) % MCV 84.6 (80.0-100.0) fL MCH 28.5 (25.0-34.0) pg MCHC 33.6 (32.0-36.0) g/dL RDW Std Deviation 39.3 (36.4-46.3) fL RDW Coeff of Valentin 12.8 (11.5-14.5) % Plt Count 251 (130-400) K/uL MPV 10.0 (9.4-12.4) fL Immature Gran % (Auto) 0.6 % Neut % (Auto) 79.8 % Lymph % (Auto) 16.6 % [place] % (Auto) 2.8 % Eos % (Auto) 0.0 % Baso % (Auto) 0.2 % Neut # (Auto) 9.88 H (1.40-6.50) K/uL Lymph # (Auto) 2.05 (1.20-3.40) K/uL [place] # (Auto) 0.35 (0.11-0.59) K/uL Eos # (Auto) 0.00 (0.00-0.50) K/uL Baso # (Auto) 0.03 (0.00-0.20) K/uL Immature Gran # (Auto) 0.07 (0.01-0.20) K/uL Sodium 136 (136-145) mmol/L Potassium 4.3 (3.5-5.1) mmol/L Chloride 101 (98-107) mmol/L Carbon Dioxide 29 (21-32) mmol/L Anion Gap 6 (3-11) BUN 23 (6-23) mg/dl Creatinine 0.76 (0.6-1.2) mg/dl Est Cr Clr Drug Dosing 57.5 ml/min eGFR 82.17 BUN/Creatinine Ratio 30.3 H (10-20) Glucose 137 H (70-99(Fasting)) mg/dl Calcium 10.0 (8.6-10.3) mg/dl Total Bilirubin 0.5 (0.2-1.0) mg/dl AST 19 (13-39) U/L ALT 22 (7-52) U/L Alkaline Phosphatase 72 (34-104) U/L Total Protein 7.4 (6.0-8.3) gm/dl Albumin 4.8 (3.4-5.0) gm/dl Globulin 2.6 (2.5-4.0) gm/dl Albumin/Globulin Ratio 1.8 (0.9-2) Urine Color Yellow Urine Appearance Clear (Clear) Urine pH 7.0 (4.5-7.5) Ur Specific [place] 1.011 (1.000-1.030) Urine Protein Negative (Negative) Urine Glucose (UA) Negative (Negative) Urine Ketones Negative (Negative) Urine Blood Negative (Negative) Urine Nitrite Negative (Negative) Urine Bilirubin Negative (Negative) Urine Urobilinogen Negative (Negative) Ur Leukocyte Esterase 1+ H (Negative) Urine WBC (Auto) 0-5 (0-5) /hpf Urine RBC (Auto) 0-2 (0-2) /hpf U Hyaline Cast (Auto) 0-2 (0-2) /lpf U Epithel Cells (Auto) 0-2 (0-2) /hpf Urine Bacteria (Auto) None Seen (None Seen) Administered Medications Discontinued Medications Acetaminophen (Acetaminophen 500 Mg Tab) 1,000 mg PO NOW STA Stop: 12/18/24 09:55 Last Admin: 12/18/24 10:19 Dose: 1,000 mg Documented By: [facility] Acetaminophen (Acetaminophen 500 Mg Tab) 1,000 mg PO NOW STA Stop: 12/18/24 17:18 Last Admin: 12/18/24 17:28 Dose: 1,000 mg Documented By: LOIS Dexamethasone Sodium Phosphate (DexamethasonePf 10 Mg/Ml Vial) 10 mg IM NOW ONE Stop: 12/18/24 09:55 Last Admin: 12/18/24 10:19 Dose: 10 mg Documented By: [facility] Ibuprofen (Ibuprofen 600 Mg Tab) 600 mg PO NOW STA Stop: 12/18/24 17:18 Last Admin: 12/18/24 17:28 Dose: 600 mg Documented By: LOIS Ketorolac Tromethamine (Ketorolac Tromethamine 60 Mg/2 Ml Vial) 30 mg IM NOW STA Stop: 12/18/24 09:55 Last Admin: 12/18/24 10:19 Dose: 30 mg Documented By: [facility] Lidocaine (Lidocaine 5% 1 Patch) 1 patch TD NOW STA Stop: 12/18/24 09:56 Last Admin: 12/18/24 10:19 Dose: 1 patch Documented By: [facility] Methocarbamol (Methocarbamol 500 Mg Tablet) 500 mg PO NOW STA Stop: 12/18/24 09:55 Last Admin: 12/18/24 10:48 Dose: 500 mg Documented By: [facility] Morphine Sulfate (Morphine Sulfate 4 Mg/Ml 1 Ml Carp\Vial) 4 mg IV NOW STA Stop: 12/18/24 13:00 Last Admin: 12/18/24 13:46 Dose: 4 mg Documented By: [facility] Tramadol HCl (Tramadol Hcl 50 Mg Tablet) 50 mg PO NOW STA Stop: 12/18/24 11:50 Last Admin: 12/18/24 11:52 Dose: 50 mg Documented By: [facility] Tramadol HCl (Tramadol Hcl 50 Mg Tablet) 50 mg PO NOW STA Stop: 12/18/24 17:18 Last Admin: 12/18/24 17:29 Dose: 50 mg Documented By: LOIS Imaging Data Attestation: I personally reviewed and interpreted this imaging study as follows: Radiologist's Impression: Lumbar Spine CT 12/18/24 09:54 EXAM: CT Lumbar Spine Without Intravenous Contrast INDICATION: Sciatica TECHNIQUE: Axial computed tomography images of the lumbar spine without intravenous contrast. Sagittal and coronal reformatted images were created and reviewed. This CT exam was performed using one or more of the following dose reduction techniques: automated exposure control, adjustment of the mA and/or kV according to patient size, and/or use of iterative reconstruction technique. COMPARISON: No relevant prior studies available. FINDINGS: Limitations: None. Vertebrae: The first nonrib-bearing vertebra is considered L1. There is sacralization of L5. The bones are demineralized. There is diffuse mild to moderate facet arthrosis. Minimal spondylosis at all levels. There is mild anterior and posterior ligamentous ossification L L4-L5. No fracture or subluxation. Sacrum/coccyx: No significant abnormality noted. No acute change noted. Discs/spinal canal/neural foramina: There is mild to moderate canal s and foraminal stenosis secondary to disc bulge and ligamentous and facet hypertrophy L1-L2. Severe changes slightly asymmetric on the right with L3 nerve root impingement noted L2-L3. Disc bulge asymmetric to the right with mild ventral canal and right foraminal orifice narrowing L3-L4. There is mild abutment of the origin and subarticular right L4 nerve root. Minimal far lateral left L4 nerve root abutment. Soft tissues: No significant abnormality noted. Kidneys and ureters: Simple right renal cyst/s. No simple cyst follow-up necessary. Left kidney appears normal. No renal stone, hydronephrosis or perinephric fluid. 3 mm oval nonobstructing stone left kidney. IMPRESSION: 1. Multilevel degenerative changes as above most notably involving all to L3 and L3-L4. 2. No acute abnormality noted. 3. 3 mm nonobstructing left kidney stone. ACT 112: Negative or not required by law. Electronically signed by Yuni Grace 12-18-2024 10:36 AM Lumbar Spine MRI 12/18/24 14:24 MRI CERVICAL LUMBAR WITHOUT CONTRAST TECHNIQUE: An MRI examination of the lumbar spine was performed. The examination consists of sagittal T1-weighted, inversion recovery and T2 weighted images as well as axial T1-weighted, T2-weighted and gradient echo images. INDICATION: Back pain COMPARISON: CT lumbar spine from the same day. FINDINGS: No significant vertebral body height loss. No significant spondylolisthesis. Bone marrow signal is unremarkable. The conus terminates at L1. Bilateral cortical and parapelvic renal cysts. 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 These changes result in severe narrowing of the left neural foramen.. Mild narrowing of the right neural foramen. No significant narrowing of the spinal canal. The left exiting nerve appears to be impinged. L2-3: Broad-based disc bulge, bilateral facet hypertrophy and thickening of the ligamentum flavum. These changes result in mild to moderate narrowing of the left and mild narrowing of the right neural foramina and mild crowding of the subarticular recesses. L3-4: Broad-based disc bulge, bilateral facet hypertrophy and thickening of the ligamentum flavum. These changes result in moderate to severe tricompartmental spinal canal stenosis and moderate to severe bilateral neural foraminal narrowing. The exiting nerve roots appear to be impinged extraforaminally on both sides. L4-5: Broad-based disc bulge, bilateral facet hypertrophy and thickening of the ligamentum flavum. These changes result in moderate to severe tricompartmental spinal canal stenosis and moderate to severe bilateral neural foraminal narrowing. The exiting nerve roots appear to be impinged extraforaminally on both sides. L5-S1: Mild disc bulge, bilateral facet hypertrophy and thickening of the ligamentum flavum. No appreciable spinal canal or neural foraminal narrowing. IMPRESSION: No acute process detected in the lumbar spine. 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 Electronically signed by Brock Lucio 12-18-2024 4:48 PM Discharge Plan Visit Data Chief Complaint: Back Injury/Pain Stated Complaint: PAIN LOWER BACK AND R LEG/KNEE ED Provider: Noe Benjamin ED Midlevel Provider: Lisha Barrett Discharge Problem: Lumbar back pain, Acute lumbar radiculopathy Forms Stand Alone Forms: My [facility] Prescriptions Prescriptions: No Action atorvastatin 20 mg tablet 20 mg PO DAILY levothyroxine 50 mcg tablet 50 mcg PO DAILY cetirizine 10 mg Tablet 10 mg PO DAILY aspirin 81 mg Tablet,Delayed Release (Dr/Ec) 81 mg PO Q OTHER DAY lisinopril 10 mg Tablet 10 mg PO DAILY magnesium 250 mg Tablet 500 mg PO DAILY prednisone 20 mg tablet 20 mg PO UD Rx Instructions: Start Date 12/16/24: Take 20mg by mouth twice daily x 5 days; 20mg by mouth once daily x 5 days gabapentin 300 mg capsule 300 mg PO BID Referrals Referrals: Shilpa Patel PAZahidaC [Primary Care Provider] -
[2024-12-18] MEDS: ACETAMINOPHEN 500 MG TAB PO STA ×2 (10:19→17:28)
[2024-12-18] MEDS: LIDOCAINE 5% 1 PATCH TD STA (10:19)
[2024-12-18] MEDS: dexAMETHasone**PF** 10 MG/ML VIAL IM ONE (10:19)
[2024-12-18] MEDS: KETOROLAC TROMETHAMINE 60 MG/2 ML VIAL IM STA (10:19)
--- NOTE | 2024-12-18 10:36 | CT Scan Report ---
EXAM: CT Lumbar Spine Without Intravenous Contrast INDICATION: Sciatica TECHNIQUE: Axial computed tomography images of the lumbar spine without intravenous contrast. Sagittal and coronal reformatted images were created and reviewed. This CT exam was performed using one or more of the following dose reduction techniques: automated exposure control, adjustment of the mA and/or kV according to patient size, and/or use of iterative reconstruction technique. COMPARISON: No relevant prior studies available. FINDINGS: Limitations: None. Vertebrae: The first nonrib-bearing vertebra is considered L1. There is sacralization of L5. The bones are demineralized. There is diffuse mild to moderate facet arthrosis. Minimal spondylosis at all levels. There is mild anterior and posterior ligamentous ossification L L4-L5. No fracture or subluxation. Sacrum/coccyx: No significant abnormality noted. No acute change noted. Discs/spinal canal/neural foramina: There is mild to moderate canal s and foraminal stenosis secondary to disc bulge and ligamentous and facet hypertrophy L1-L2. Severe changes slightly asymmetric on the right with L3 nerve root impingement noted L2-L3. Disc bulge asymmetric to the right with mild ventral canal and right foraminal orifice narrowing L3-L4. There is mild abutment of the origin and subarticular right L4 nerve root. Minimal far lateral left L4 nerve root abutment. Soft tissues: No significant abnormality noted. Kidneys and ureters: Simple right renal cyst/s. No simple cyst follow-up necessary. Left kidney appears normal. No renal stone, hydronephrosis or perinephric fluid. 3 mm oval nonobstructing stone left kidney. IMPRESSION: 1. Multilevel degenerative changes as above most notably involving all to L3 and L3-L4. 2. No acute abnormality noted. 3. 3 mm nonobstructing left kidney stone. ACT 112: Negative or not required by law. Electronically signed by Yuni Grace 12-18-2024 10:36 AM
[2024-12-18] MEDS: METHOCARBAMOL 500 MG TABLET PO STA (10:48)
[2024-12-18] MEDS: traMADol HCL 50 MG TABLET PO STA ×2 (11:52→17:29)
[2024-12-18] MEDS: MoRPHine SULFATE 4 MG/ML 1 ML CARP\\VIAL IV STA (13:46)
[2024-12-18 14:01] LABS: Basophils # (auto) 0.03 K/uL (0.00-0.20); Basophils % (auto) 0.2 %; Hemoglobin 14.8 g/dl (12.0-16.0); Immature Granulocytes # (auto) 0.07 K/uL (0.01-0.20); Immature Granulocytes % (auto) 0.6 %; Lymphocytes # (auto) 2.05 K/uL (1.20-3.40); Lymphocytes % (auto) 16.6 %; Mean Corpuscular Hemoglobin 28.5 pg (25.0-34.0); Mean Corpuscular Hgb Conc 33.6 g/dL (32.0-36.0); Mean Corpuscular Volume 84.6 fL (80.0-100.0); Monocytes # (auto) 0.35 K/uL (0.11-0.59); Monocytes % (auto) 2.8 %; Neutrophils # (auto) 9.88 K/uL (1.40-6.50); Neutrophils % (auto) 79.8 %; Platelet Count 251 K/uL (130-400); RDW Coefficient of Variation 12.8 % (11.5-14.5); RDW Standard Deviation 39.3 fL (36.4-46.3); White Blood Count 12.38 K/ul (4.8-10.8)
[2024-12-18 14:05] LABS: Appearance Urine Clear (Clear); Bacteria Urine Automated None Seen (None Seen); Bilirubin Urine Negative (Negative); Blood Urine Negative (Negative); Cast Urine Automated 0-2 /lpf (0-2); Color Urine Yellow; Epithelial Cell Urine Auto 0-2 /hpf (0-2); Glucose Urine UA Negative (Negative); Ketones Urine Negative (Negative); Leukocyte Esterase Urine 1+ (Negative); Nitrite Urine Negative (Negative); Protein Urine Negative (Negative); RBC Urine Automated 0-2 /hpf (0-2); Specific Gravity Urine 1.011 (1.000-1.030); Urobilinogen Urine Negative (Negative); WBC Urine Automated 0-5 /hpf (0-5)
[2024-12-18 14:19] LABS: Albumin Globulin Ratio 1.8 (0.9-2); Albumin Level 4.8 gm/dl (3.4-5.0); BUN Creatinine Ratio 30.3 (10-20); Bilirubin,Total 0.5 mg/dl (0.2-1.0); Creatinine Clr Calc Pharmacy 57.5 ml/min; Globulin 2.6 gm/dl (2.5-4.0); Potassium 4.3 mmol/L (3.5-5.1); Total Protein 7.4 gm/dl (6.0-8.3)
--- NOTE | 2024-12-18 16:48 | Magnetic Resonance Report ---
MRI CERVICAL LUMBAR WITHOUT CONTRAST TECHNIQUE: An MRI examination of the lumbar spine was performed. The examination consists of sagittal T1-weighted, inversion recovery and T2 weighted images as well as axial T1-weighted, T2-weighted and gradient echo images. INDICATION: Back pain COMPARISON: CT lumbar spine from the same day. FINDINGS: No significant vertebral body height loss. No significant spondylolisthesis. Bone marrow signal is unremarkable. The conus terminates at L1. Bilateral cortical and parapelvic renal cysts. 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 These changes result in severe narrowing of the left neural foramen.. Mild narrowing of the right neural foramen. No significant narrowing of the spinal canal. The left exiting nerve appears to be impinged. L2-3: Broad-based disc bulge, bilateral facet hypertrophy and thickening of the ligamentum flavum. These changes result in mild to moderate narrowing of the left and mild narrowing of the right neural foramina and mild crowding of the subarticular recesses. L3-4: Broad-based disc bulge, bilateral facet hypertrophy and thickening of the ligamentum flavum. These changes result in moderate to severe tricompartmental spinal canal stenosis and moderate to severe bilateral neural foraminal narrowing. The exiting nerve roots appear to be impinged extraforaminally on both sides. L4-5: Broad-based disc bulge, bilateral facet hypertrophy and thickening of the ligamentum flavum. These changes result in moderate to severe tricompartmental spinal canal stenosis and moderate to severe bilateral neural foraminal narrowing. The exiting nerve roots appear to be impinged extraforaminally on both sides. L5-S1: Mild disc bulge, bilateral facet hypertrophy and thickening of the ligamentum flavum. No appreciable spinal canal or neural foraminal narrowing. IMPRESSION: No acute process detected in the lumbar spine. 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 Electronically signed by Brock Lucio 12-18-2024 4:48 PM
[2024-12-18] MEDS: IBUPROFEN 600 MG TAB PO STA (17:28)
--- NOTE | 2024-12-18 19:01 | History & Physical Report ---
Date of Service December 18, 2024 Assessment & Plan (1) Acute lumbar radiculopathy: Plan: Admission as patient does not think she can complete ADLs at home due to the pain at this time Acetaminophen, Dexamethasone, gabapentin, oxycodone 1st line, Morphine 2nd line PT/OT Consult pain management, ortho spine for further advice Plan VTE Prophyalxis - Low risk Diet - regular Disposition - admit to med/surg Admission and Anticipated Discharge Date Admission Date: December 18, 2024 History of Present Illness Chief Complaint: Right leg and back pain Primary Care Provider: Shilpa Patel PA-C Aminah Mcconnell is a 74 year old female who presents to the ER with right sided back and leg pain. Ongoing symptoms since November 27. Initially diagnosed with ilial tibial band syndrome and tried alternating acetaminophen and ibuprofen but symptoms slowly progressively got worse. She followed up with [facility] and arranged for MRI of her back and started on gabapentin which also hasn't been working. Her pain has slowly progressively got worse. No perianal numbness, loss of bladder or bowel control, fever or chills. Allergies Allergy/AdvReac Type Severity Reaction Status Date / Time No Known Allergies Allergy Unverified 12/18/24 10:43 Home Medications Medication Instructions Recorded Confirmed Type aspirin 81 mg tablet,delayed 81 mg PO Q OTHER DAY 04/04/20 12/18/24 History release atorvastatin 20 mg tablet 20 mg PO DAILY 04/04/20 12/18/24 History cetirizine 10 mg tablet 10 mg PO DAILY allergies 04/04/20 12/18/24 History levothyroxine 50 mcg tablet 50 mcg PO DAILY 04/04/20 12/18/24 History lisinopril 10 mg tablet 10 mg PO DAILY 04/04/20 12/18/24 History magnesium 250 mg tablet 500 mg PO DAILY 04/04/20 12/18/24 History gabapentin 300 mg capsule 300 mg PO BID 12/18/24 12/18/24 History metformin 500 mg tablet 500 mg PO QAM 12/18/24 12/18/24 History prednisone 20 mg tablet 20 mg PO UD 12/18/24 12/18/24 History Past Med/Surg History Problem List (Updated 12/18/24 @ 18:41 by KALE Lombardo) Acute lumbar radiculopathy (Acute) Lumbar back pain (Acute) Rosacea Migraine headache Strain of adductor muscle of thigh Shoulder pain, right Abdominal pain, acute, left lower quadrant (Acute) Hypertension Type 2 diabetes mellitus Hypothyroidism Acute diverticulitis (Acute) Medical History Anxiety Social History Smoking Status: Never smoker Hx Alcohol Use: No Hx Substance Use: No Preferred Language: Upper Sorbian Communication Ability: Effective Senior Clinical Data Coordinator Required: No Beliefs That Will Affect Care: None Current Living Situation: Spouse Feels Safe at Home: Yes Assistive Devices: Cane and Glasses Review of Systems Review of Systems: All systems reviewed & are unremarkable except as noted in HPI & below Physical Exam Constitutional: WD/WN, vitals as above Respiratory: normal respiratory effort, lungs clear to auscultation Cardiovascular: RRR, no murmur, no edema Gastrointestinal (Abdomen): normal bowel sounds, soft, nontender, no hepatosplenomegaly Neurologic: moves all extremities and awake; no focal motor deficits and not confused L2/3 distribution pain on right leg Results & Data Results & Data Vital Signs (Past 12 Hours) Vital Signs Temp Pulse Pulse Resp BP BP Pulse Ox 12/18/24 18:23 68 17 173/84 H 96 12/18/24 16:30 66 16 174/99 H 94 12/18/24 15:30 67 18 128/93 94 12/18/24 14:00 67 16 164/134 H 94 12/18/24 11:46 60 16 152/92 H 99 12/18/24 10:28 63 18 171/128 H 96 12/18/24 09:10 36.5 C 76 18 182/83 H 98 O2 Del Method 12/18/24 18:23 Room Air 12/18/24 16:30 Room Air 12/18/24 15:30 Room Air 12/18/24 14:00 Room Air 12/18/24 11:46 Room Air 12/18/24 10:28 Room Air 12/18/24 09:10 Laboratory Results Abnormal lab results 12/18/24 12/18/24 Range/Units 13:32 13:39 WBC 12.38 H (4.8-10.8) K/ul Neut # (Auto) 9.88 H (1.40-6.50) K/uL BUN/Creatinine Ratio 30.3 H (10-20) Glucose 137 H (70-99(Fasting)) mg/dl Ur Leukocyte Esterase 1+ H (Negative) Diagnostic Findings CT Lumbar Spine Without Intravenous Contrast INDICATION: Sciatica TECHNIQUE: Axial computed tomography images of the lumbar spine without intravenous contrast. Sagittal and coronal reformatted images were created and reviewed. This CT exam was performed using one or more of the following dose reduction techniques: automated exposure control, adjustment of the mA and/or kV according to patient size, and/or use of iterative reconstruction technique. COMPARISON: No relevant prior studies available. FINDINGS: Limitations: None. Vertebrae: The first nonrib-bearing vertebra is considered L1. There is sacralization of L5. The bones are demineralized. There is diffuse mild to moderate facet arthrosis. Minimal spondylosis at all levels. There is mild anterior and posterior ligamentous ossification L L4-L5. No fracture or subluxation. Sacrum/coccyx: No significant abnormality noted. No acute change noted. Discs/spinal canal/neural foramina: There is mild to moderate canal s and foraminal stenosis secondary to disc bulge and ligamentous and facet hypertrophy L1-L2. Severe changes slightly asymmetric on the right with L3 nerve root impingement noted L2-L3. Disc bulge asymmetric to the right with mild ventral canal and right foraminal orifice narrowing L3-L4. There is mild abutment of the origin and subarticular right L4 nerve root. Minimal far lateral left L4 nerve root abutment. Soft tissues: No significant abnormality noted. Kidneys and ureters: Simple right renal cyst/s. No simple cyst follow-up necessary. Left kidney appears normal. No renal stone, hydronephrosis or perinephric fluid. 3 mm oval nonobstructing stone left kidney. IMPRESSION: 1. Multilevel degenerative changes as above most notably involving all to L3 and L3-L4. 2. No acute abnormality noted. 3. 3 mm nonobstructing left kidney stone. MRI CERVICAL LUMBAR WITHOUT CONTRAST TECHNIQUE: An MRI examination of the lumbar spine was performed. The ex amination consists of sagittal T1-weighted, inversion recovery and T2 weighted images as well as axial T1-weighted, T2-weighted and gradient echo images. INDICATION: Back pain COMPARISON: CT lumbar spine from the same day. FINDINGS: No significant vertebral body height loss. No significant spondylolisthesis. Bone marrow signal is unremarkable. The conus terminates at L1. Bilateral cortical and parapelvic renal cysts. 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 These changes result in severe narrowing of the left neural foramen.. Mild narrowing of the right neural foramen. No significant narrowing of the spinal canal. The left exiting nerve appears to be impinged. L2-3: Broad-based disc bulge, bilateral facet hypertrophy and thickening of the ligamentum flavum. These changes result in mild to moderate narrowing of the left and mild narrowing of the right neural foramina and mild crowding of the subarticular recesses. L3-4: Broad-based disc bulge, bilateral facet hypertrophy and thickening of the ligamentum flavum. These changes result in moderate to severe tricompartmental spinal canal stenosis and moderate to severe bilateral neural foraminal narrowing. The exiting nerve roots appear to be impinged extraforaminally on both sides. L4-5: Broad-based disc bulge, bilateral facet hypertrophy and thickening of the ligamentum flavum. These changes result in moderate to severe tricompartmental spinal canal stenosis and moderate to severe bilateral neural foraminal narrowing. The exiting nerve roots appear to be impinged extraforaminally on both sides. L5-S1: Mild disc bulge, bilateral facet hypertrophy and thickening of the ligamentum flavum. No appreciable spinal canal or neural foraminal narrowing. IMPRESSION: No acute process detected in the lumbar spine. Medications Administered ER Medications Given: Toradol 30mg IM Acetaminophen 1000mg PO Dexamethasone 10mg IM Robaxin 500mg PO Lidocaine patch Tramadol 50mg PO Morphine 4mg IV Ibuprofen 600mg Tramadol 50mg PO Code Status & VTE Plan Code Status Full VTE Prophylaxis Plan VTE Prophylaxis will be ordered: No PG Care Time/CCT Total # of Minutes Spent Total Time Spent with Patient: Total time spent is greater than 50% in coordination of care (as documented) at patient's floor/unit and/or counseling patient: Coding Level of Care Code 82959 INT INP/OBS CARE 2/55MIN Diagnoses Acute lumbar radiculopathy M54.16
[2024-12-18] MEDS ORDERED: oxyCODONE HCL IR 5 MG TAB (IMMEDIATE RELEASE) PO PRN (20:36)
[2024-12-18] MEDS ORDERED: MoRPHine SULFATE 2 MG/ML CARP IV PRN (20:36)
[2024-12-18] MEDS: ACETAMINOPHEN 500 MG TAB PO SCH (20:54)
[2024-12-18] MEDS: dexAMETHasone 10 MG in SYRINGE 0 ML IV SCH (21:19)
[2024-12-18] MEDS: GABAPENTIN 300 MG CAP PO SCH (21:19)
[2024-12-18] MEDS ORDERED: DEXAMETHASONE SOD INJ 4 MG/ML VIAL IV SCH (22:00)
[2024-12-19] MEDS: oxyCODONE HCL IR 5 MG TAB (IMMEDIATE RELEASE) PO PRN (02:29)
[2024-12-19] MEDS: MoRPHine SULFATE 4 MG/ML 1 ML CARP\\VIAL IV PRN (05:40)
[2024-12-19] MEDS: CETIRIZINE HCL 10 MG TABLET PO SCH (08:44)
[2024-12-19] MEDS: MAGNESIUM OXIDE 400 MG TAB PO SCH (08:44)
[2024-12-19] MEDS: metFORMIN HCL 500 MG TAB PO SCH (08:44)
[2024-12-19] MEDS: ASPIRIN 81 MG ECTAB PO SCH (08:44)
[2024-12-19] MEDS: LEVOTHYROXINE SODIUM 50 MCG TABLET PO SCH (08:44)
[2024-12-19] MEDS: lisinopril 10 MG TAB PO SCH (08:44)
[2024-12-19] MEDS: ATORVASTATIN 20 MG TAB PO SCH (08:45)
[2024-12-19] MEDS: GABAPENTIN 400 MG CAP PO SCH (10:15)
--- NOTE | 2024-12-19 10:19 | Pain Management Consultation ---
Date of Consultation December 19, 2024 Assessment & Plan (1) Acute lumbar radiculopathy: Plan 1. Patient will continue oxycodone if needed for pain relief. 2. Continue IV morphine if needed for breakthrough pain. 3. I have increased the gabapentin dosage to 400 mg twice daily. 4. I did briefly discuss an epidural steroid injection with the patient. Patient would like to pursue surgical intervention if possible. She is to this evaluated by Dr. Antonio today and discussed options. 5. Please contact with any questions or concerns, otherwise I will sign off on the patient. History of Present Illness Attending Physician: Jonn Ross MD History of Present Illness This is a 74-year-old female that has been admitted to the [facility] for lumbar radiculopathy. Patient states that this pain started 20 days ago. She thinks that pain started the day after a hard exercise class. She describes an aching pain along the lateral aspect of the right lower leg. Mild aching pain along the tailbone. She has been working with her PCP and orthopedics. She tried oral steroids tramadol without any significant pain relief. Patient states that the pain will keep her up at night. There is moderate pain relief with oxycodone 5 to 10 mg and gabapentin 300 mg twice daily. There is IV morphine if needed. Patient denies any bowel/bladder incontinence, saddle anesthesia, leg weakness, falls. Case discussed with Dr. Nichol Quevedo Allergies Allergy/AdvReac Type Severity Reaction Status Date / Time No Known Allergies Allergy Unverified 12/18/24 10:43 Home Medications Medication Instructions Recorded Confirmed Type aspirin 81 mg tablet,delayed 81 mg PO Q OTHER DAY 04/04/20 12/18/24 History release atorvastatin 20 mg tablet 20 mg PO DAILY 04/04/20 12/18/24 History cetirizine 10 mg tablet 10 mg PO DAILY allergies 04/04/20 12/18/24 History levothyroxine 50 mcg tablet 50 mcg PO DAILY 04/04/20 12/18/24 History lisinopril 10 mg tablet 10 mg PO DAILY 04/04/20 12/18/24 History magnesium 250 mg tablet 500 mg PO DAILY 04/04/20 12/18/24 History gabapentin 300 mg capsule 300 mg PO BID 12/18/24 12/18/24 History metformin 500 mg tablet 500 mg PO QAM 12/18/24 12/18/24 History prednisone 20 mg tablet 20 mg PO UD 12/18/24 12/18/24 History Patient History Medical History Anxiety Social History Smoking Status: Never smoker Hx Alcohol Use: No Hx Substance Use: No Preferred Language: Nicaraguan Communication Ability: Effective 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 HEAD/FACE: Normocephalic and atraumatic. EYES: No drainage or conjunctival injection. ENT: Nose without bleeding or discharge. Oral mucosa moist. NECK: Full ROM without apparent pain. No swelling or masses noted. RESPIRATORY: Patient with unlabored breathing. No signs of respiratory distress. CHEST/AXILLA: Chest movement symmetrical. No deformities noted. ABDOMEN/GI: No distension BACK: Moves without difficulty. No midline, facet joint, SI joint tenderness. No paravertebral, quadratus lumborum, gluteal, piriformis muscle spasm or trigger points noted. SKIN: [place], warm and dry. No rash noted. MS/EXTREMITY: 5/5 strength in the bilateral lower extremities. Negative straight leg raise. NEURO: Alert and appears oriented. Speech is fluent. Cranial Nerves are grossly intact. PSYCH: Alert, pleasant, affect is calm Results (Pain Clinic) Diagnostic Review MRI Findings: ADDENDUM Upon further review of the case, there is a 0.9 x 0.9 x 1.3 cm T1 and T2 isointense structure within the right lateral recess/L3-L4 right neural foramen posterior to the L3 level (image 6 series 3 and image 15 series 6) which appears to represent a disc extrusion versus sequestered disc fragment arising from the L3-L4 level. This causes severe right lateral recess narrowing with abutment and posterior displacement of the adjacent right L3 and L4 nerve roots. Moderate bilateral foraminal narrowing at L3-L4 with minimal central canal stenosis. Findings were discussed with Dr. Antonio on 12/19/2024 at 9:35 AM Electronically signed by: Fran Shah M.D. 12/19/2024 9:43 AM ADDENDUM END MRI CERVICAL LUMBAR WITHOUT CONTRAST TECHNIQUE: An MRI examination of the lumbar spine was performed. The examination consists of sagittal T1-weighted, inversion recovery and T2 weighted images as well as axial T1-weighted, T2-weighted and gradient echo images. INDICATION: Back pain COMPARISON: CT lumbar spine from the same day. FINDINGS: No significant vertebral body height loss. No significant spondylolisthesis. Bone marrow signal is unremarkable. The conus terminates at L1. Bilateral cortical and parapelvic renal cysts. 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 These changes result in severe narrowing of the left neural foramen.. Mild narrowing of the right neural foramen. No significant narrowing of the spinal canal. The left exiting nerve appears to be impinged. L2-3: Broad-based disc bulge, bilateral facet hypertrophy and thickening of the ligamentum flavum. These changes result in mild to moderate narrowing of the left and mild narrowing of the right neural foramina and mild crowding of the subarticular recesses. L3-4: Broad-based disc bulge, bilateral facet hypertrophy and thickening of the ligamentum flavum. These changes result in moderate to severe tricompartmental spinal canal stenosis and moderate to severe bilateral neural foraminal narrowing. The exiting nerve roots appear to be impinged extraforaminally on both sides. L4-5: Broad-based disc bulge, bilateral facet hypertrophy and thickening of the ligamentum flavum. These changes result in moderate to severe tricompartmental spinal canal stenosis and moderate to severe bilateral neural foraminal narrowing. The exiting nerve roots appear to be impinged extraforaminally on both sides. L5-S1: Mild disc bulge, bilateral facet hypertrophy and thickening of the ligamentum flavum. No appreciable spinal canal or neural foraminal narrowing. IMPRESSION: No acute process detected in the lumbar spine. 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 Electronically signed by Brock Lucio 12-18-2024 4:48 PM
--- NOTE | 2024-12-19 11:58 | Orthopedic Consultation ---
Date of Consultation December 19, 2024 Assessment & Plan (1) Lumbar disc herniation with radiculopathy: MRI lumbar spine available for review demonstrates herniated spondylosis with a fragment most likely emanating from L3-L4 migrating caudally affecting the traversing L3 and exiting L4 nerve roots on the right. There is significant displacement particularly of the exiting L4 nerve root. This is concordant with her clinical presentation. At length yesterday with the patient regarding her clinical course and MRI findings. This point she has had the symptoms for almost 4 weeks and has been unresponsive to medication and injections as well as therapy. We discussed injections versus surgical intervention. In light of her pain requirements on medications and neurodeficits she would like to pursue surgery. It would require a lumbar laminectomy L4-L5 on the right with excision of herniated fragment. Risk benefits pros cons alternatives were all in detail. Risk include but not limited to anesthesia blindness stroke paralysis nerve damage bylaws requiring transfusion infection requiring reoperation bends with the improvement of her lumbar radiculopathy. This time we will make her n.p.o. after midnight plan for surgery tomorrow on an urgent basis in the presence of her neurologic decline. History of Present Illness Reason for Consultation: Right leg pain Attending Physician: Jnon Ross MD History of Present Illness This is a very pleasant 74-year-old female presents emergency room yesterday with continued severe right leg symptoms. This began beginning of November. Describes pain involving right buttock posterior lateral thigh extending to the knee and anterior tibia just to the ankle. It is incapacitating in nature. Does not allow her to sleep. She is undergone therapy and trochanteric injections without resolution. The left lower extremity is asymptomatic. She does note that breakaway weakness to the right quadriceps. She has difficulty ascending and descending stairs. She notes decreased sensation involving the right lower extremity compared to left. Allergies Allergy/AdvReac Type Severity Reaction Status Date / Time No Known Allergies Allergy Unverified 12/18/24 10:43 Home Medications Medication Instructions Recorded Confirmed Type aspirin 81 mg tablet,delayed 81 mg PO Q OTHER DAY 04/04/20 12/18/24 History release atorvastatin 20 mg tablet 20 mg PO DAILY 04/04/20 12/18/24 History cetirizine 10 mg tablet 10 mg PO DAILY allergies 04/04/20 12/18/24 History levothyroxine 50 mcg tablet 50 mcg PO DAILY 04/04/20 12/18/24 History lisinopril 10 mg tablet 10 mg PO DAILY 04/04/20 12/18/24 History magnesium 250 mg tablet 500 mg PO DAILY 04/04/20 12/18/24 History gabapentin 300 mg capsule 300 mg PO BID 12/18/24 12/18/24 History metformin 500 mg tablet 500 mg PO QAM 12/18/24 12/18/24 History prednisone 20 mg tablet 20 mg PO UD 12/18/24 12/18/24 History Patient History Medical History Anxiety Social History Smoking Status: Never smoker Hx Alcohol Use: No Hx Substance Use: No Preferred Language: Turkmen Communication Ability: Effective Rehab Consultant Required: No Beliefs That Will Affect Care: None Current Living Situation: Spouse Other Information That Helps Us Care for You: No Feels Safe at Home: Yes Safety Concerns: Feels Safe At This Time Assistive Devices: Cane and Glasses Physical Exam Physical Exam: On exam patient is currently in bed. There is decreased sensation to cold and light touch to the right lower extremity compared to the left. There is a 4/5 right quadricep still 5/5 in the left. Dorsiflexion extensor houses longus plantarflexion appear to be symmetric 5/5 bilaterally. Tension signs are present on the right. Results & Data Vital Signs (Past 12 Hours) Vital Signs Temp Pulse Pulse Resp BP Pulse Ox O2 Del Method 12/19/24 07:53 36.6 C 71 14 160/90 H 95 Room Air 12/18/24 23:30 36.4 C L 66 18 172/80 H 96 Room Air 12/18/24 22:41 61 16 124/59 L 93 Room Air 12/18/24 22:25 59 L 16 124/59 L 93 Room Air
[2024-12-19] MEDS ORDERED: GLUCAGON FOR INJ 1 MG VIAL SQ PRN (12:10)
[2024-12-19] MEDS ORDERED: GLUCOSE 40% GEL 15 GM TUBE PO PRN (12:10)
[2024-12-19] MEDS ORDERED: CARBOHYDRATES FOR HYPOGLYCEMIA PO PRN (12:10)
[2024-12-19] MEDS ORDERED: DEXTROSE 50% 50 ML SYRINGE IV PRN (12:10)
[2024-12-19] MEDS ORDERED: GLUCOSE 10 TAB/TUBE PO PRN (12:10)
--- NOTE | 2024-12-19 12:31 | Hospitalist Progress Note ---
Date of Service December 19, 2024 Assessment & Plan (1) Acute lumbar radiculopathy: Plan: Following ortho spine and pain management consults she has elected for surgery which Dr. Antonio plans to perform tomorrow She is medically optimized for surgery. Will discontinue dexamethasone as agree with Dr. Antonio she is notably in the acute inflammatory phase and unlikely to benefit from this. Continue off NSAIDs presurgery N.p.o. after midnight Continue acetaminophen and gabapentin, for breakthrough pain: oxycodone first- line, morphine second line Plan VTE Prophylaxis - Low risk, hold perioperatively Diet - regular, n.p.o. after midnight Disposition - admit to med/surg Admission and Anticipated Discharge Date Admission Date: December 18, 2024 Subjective No change in symptoms. Continues with L4 radiculopathy pain. Physical Exam Constitutional: WD/WN, vitals as above Respiratory: normal respiratory effort, lungs clear to auscultation Cardiovascular: RRR, no murmur, no edema Gastrointestinal (Abdomen): normal bowel sounds, soft, nontender, no hepatosplenomegaly Neurologic: moves all extremities and awake; no focal motor deficits and not confused Results & Data Results & Data Vital Signs (Past 12 Hours) Vital Signs Temp Pulse Resp BP Pulse Ox O2 Del Method 12/19/24 11:40 36.7 C 73 12 94 Room Air 12/19/24 07:53 36.6 C 71 14 160/90 H 95 Room Air PG Care Time/CCT Total # of Minutes Spent Total Time Spent with Patient: Total time spent is greater than 50% in coordination of care (as documented) at patient's floor/unit and/or counseling patient: Coding Level of Care Code 47975 SUB INP/OBS CARE 2/35MIN Diagnoses Acute lumbar radiculopathy M54.16
[2024-12-19] MEDS: INSULIN ASPART PER UNIT CHARGE SC SCH (17:54)
[2024-12-19] MEDS: DOCUSATE SODIUM 100 MG CAP PO SCH (17:54)
[2024-12-19] MEDS: SENNA 8.6 MG TAB PO SCH (20:58)
[2024-12-20] MEDS: INSULIN ASPART PER UNIT CHARGE SC SCH ×2 (00:29→17:40)
[2024-12-20] MEDS ORDERED: DEXAMETHASONE SOD INJ 4 MG/ML VIAL ONE (10:18)
[2024-12-20] MEDS ORDERED: PROPOFOL IV EMULSION 10 MG/ML 20 ML VIAL IV ONE (10:18)
[2024-12-20] MEDS ORDERED: LIDOCAINE 2% 2 ML VIAL/AMP(20MG/ML) INFIL ONE ×2 (10:18→10:19)
[2024-12-20] MEDS ORDERED: ONDANSETRON INJ 2 MG/ML 2 ML VIAL ONE (10:18)
[2024-12-20] MEDS ORDERED: MIDAZOLAM HCL 1 MG/ML 2ML VIAL ONE (10:18)
[2024-12-20] MEDS ORDERED: fentaNYL citrate PF 100 MCG/2 ML VIAL ONE (10:18)
[2024-12-20] MEDS ORDERED: ROCURONIUM BROMIDE 10 MG/ML 5 ML VIAL IV ONE (10:18)
--- NOTE | 2024-12-20 11:38 | History & Physical Bridge Note ---
Date of Service December 20, 2024 History & Physical Bridge Note I have examined the patient, reviewed the History & Physical and in the interval since the performance of the History & Physical I have noted the following changes of clinical significance: no changes noted Patient has progressive neurologic deficit and recommending urgent lumbar laminectomy L4-L5 on the right
--- NOTE | 2024-12-20 11:56 | Anesthesiology Consultation ---
Date of Service December 20, 2024 Assessment & Plan Chart Review Chart Review: Acceptable Risk for Surgery Consults Requested none History Surgery Operation Date: 12/20/24 11:25 Proposed Procedures p Right L4-L5 Lumbar Laminectomy - Jeronimo Antonio DO Height/Weight Height: 5 ft 2 in Weight: 65.1 kg Allergies Allergy/AdvReac Type Severity Reaction Status Date / Time No Known Allergies Allergy Unverified 12/18/24 10:43 Medications Home Medications Medication Instructions Recorded Confirmed Last Taken aspirin 81 mg tablet,delayed 81 mg PO Q OTHER DAY 04/04/20 12/18/24 12/17/24 release atorvastatin 20 mg tablet 20 mg PO DAILY 04/04/20 12/18/24 12/17/24 cetirizine 10 mg tablet 10 mg PO DAILY allergies 04/04/20 12/18/24 12/17/24 levothyroxine 50 mcg tablet 50 mcg PO DAILY 04/04/20 12/18/24 12/17/24 lisinopril 10 mg tablet 10 mg PO DAILY 04/04/20 12/18/24 12/17/24 magnesium 250 mg tablet 500 mg PO DAILY 04/04/20 12/18/24 12/17/24 gabapentin 300 mg capsule 300 mg PO BID 12/18/24 12/18/24 12/17/24 metformin 500 mg tablet 500 mg PO QAM 12/18/24 12/18/24 Unknown prednisone 20 mg tablet 20 mg PO UD 12/18/24 12/18/24 12/17/24 Active Medications Generic Name Dose Route Start Last Admin Trade Name Luh PRN Reason Stop Dose Admin Acetaminophen 1,000 mg 12/18/24 21:00 12/20/24 07:52 Acetaminophen 500 Mg Tab PO 01/17/25 20:59 Not Given TID ZAID Aspirin 81 mg 12/19/24 09:00 12/19/24 08:44 Aspirin 81 Mg Ectab PO 01/18/25 08:59 81 mg Q2D ZAID Administration Atorvastatin Calcium 20 mg 12/19/24 09:00 12/20/24 07:57 Atorvastatin 20 Mg Tab PO 01/18/25 08:59 20 mg DAILY ZAID Administration Cetirizine HCl 10 mg 12/19/24 09:00 12/20/24 07:57 Cetirizine Hcl 10 Mg Tablet PO 01/18/25 08:59 10 mg DAILY ZAID Administration Docusate Sodium 100 mg 12/19/24 16:35 12/20/24 07:55 Docusate Sodium 100 Mg Cap PO 01/18/25 16:34 Not Given BID ZAID Gabapentin 400 mg 12/19/24 10:15 12/20/24 07:56 Gabapentin 400 Mg Cap PO 01/18/25 10:14 400 mg BID ZAID Administration Insulin Aspart 0 units 12/20/24 00:15 12/20/24 06:12 Insulin Aspart Per Unit Charge SC 01/19/25 00:14 Not Given Q6 ZAID Levothyroxine Sodium 50 mcg 12/19/24 09:00 12/20/24 07:57 Levothyroxine Sodium 50 Mcg Tablet PO 01/18/25 08:59 50 mcg DAILY ZAID Administration Lisinopril 10 mg 12/19/24 09:00 12/19/24 08:44 Lisinopril 10 Mg Tab PO 01/18/25 08:59 10 mg DAILY ZAID Administration Magnesium Oxide 400 mg 12/19/24 09:00 12/20/24 07:57 Magnesium Oxide 400 Mg Tab PO 01/18/25 08:59 400 mg DAILY ZAID Administration Miscellaneous 1 each 12/18/24 21:00 12/19/24 20:59 Remove Lidoderm Patch N/A 01/17/25 20:59 Not Given DAILY@2100 [facility] Morphine Sulfate 4 mg 12/18/24 20:36 12/20/24 09:39 Morphine Sulfate 4 Mg/Ml 1 Ml Carp\Vial IV 01/01/25 20:35 4 mg Q3H PRN Administration Pain (6,7,8,9,10) Oxycodone HCl 10 mg 12/18/24 20:36 12/20/24 06:16 Oxycodone Hcl Ir 5 Mg Tab (Immediate Release) PO 01/01/25 20:35 10 mg Q4H PRN Administration SEVERE Pain (7,8,9,10) Sennosides 17.2 mg 12/19/24 21:00 12/19/24 20:58 Senna 8.6 Mg Tab PO 01/18/25 20:59 17.2 mg HS ZAID Administration NPO Date Last Intake of Fluids: 12/19/24 Time Last Intake of Fluids: 23:00 Last Intake of Fluids Comment: 1919 sip water for baby aspirin and lisinopril Date Last Intake of Solids: 12/19/24 Time Last Intake of Solids: 19:00 Past Medical History Medical History Anxiety Social History Smoking Status: Never smoker Hx Alcohol Use: No Hx Substance Use: No Physical Exam Vital Signs Last Vital Signs Temp 36.7 C 12/20/24 10:43 Pulse 73 12/20/24 10:43 Resp 20 12/20/24 10:43 BP 141/77 H 12/20/24 10:43 Pulse Ox 95 12/20/24 10:43 O2 Del Method Room Air 12/20/24 10:43 Testing Laboratory Results 12/18/24 13:39 12/18/24 13:39 Urine Color Yellow 12/18/24 13:32 Urine Appearance Clear (Clear) 12/18/24 13:32 Urine pH 7.0 (4.5-7.5) 12/18/24 13:32 Ur Specific [place] 1.011 (1.000-1.030) 12/18/24 13:32 Urine Protein Negative (Negative) 12/18/24 13:32 Urine Glucose (UA) Negative (Negative) 12/18/24 13:32 Urine Ketones Negative (Negative) 12/18/24 13:32 Urine Nitrite Negative (Negative) 12/18/24 13:32 Ur Leukocyte Esterase 1+ (Negative) H 12/18/24 13:32 Urine WBC (Auto) 0-5 /hpf (0-5) 12/18/24 13:32 Urine RBC (Auto) 0-2 /hpf (0-2) 12/18/24 13:32 U Hyaline Cast (Auto) 0-2 /lpf (0-2) 12/18/24 13:32 U Epithel Cells (Auto) 0-2 /hpf (0-2) 12/18/24 13:32 Urine Bacteria (Auto) None Seen (None Seen) 12/18/24 13:32 12/20/24 12/20/24 12/20/24 10:49 06:08 00:06 POC Glucose 94 99 120 H
[2024-12-20] MEDS ORDERED: fentaNYL citrate PF 100 MCG/2 ML VIAL IV PRN (11:58)
[2024-12-20] MEDS ORDERED: ePHEDrine sulfate 50 MG/ML AMP IV PRN (11:58)
[2024-12-20] MEDS ORDERED: ONDANSETRON INJ 2 MG/ML 2 ML VIAL IV PRN ×2 (11:58→14:34)
[2024-12-20] MEDS ORDERED: PROMETHAZINE HCL 6.25 MG in SODIUM CHLORIDE 0.9% 50 ML IV PRN (11:58)
[2024-12-20] MEDS ORDERED: HYDROmorphone INJ 2 MG/ML SYR/VIAL IV PRN (11:58)
[2024-12-20] MEDS ORDERED: ATROPINE SULFATE 0.1 MG/ML 10ML SYR IV PRN (11:58)
[2024-12-20 12:00] LABS: Estimated Average Glucose 120 mg/dl; Hemoglobin A1C 5.8 % (4.5-5.6)
[2024-12-20] MEDS: BUPIVACAINE/EPINEPHRINE 0.25% 1:200,000 30 ML VIAL ONE (12:31)
[2024-12-20] MEDS: ceFAZolin 330 MG/ML 1 GM VIAL ONE (12:32)
[2024-12-20] MEDS ORDERED: SUGAMMADEX SODIUM 200 MG/2 ML VIAL IV ONE (12:58)
[2024-12-20] MEDS ORDERED: hydrALAZINE HCL 20 MG/ML VIAL ONE (12:59)
--- NOTE | 2024-12-20 13:03 | Operative Report ---
Post Operative Report Pre & Post Diagnosis Operation Date: 12/20/24 11:25 Pre-Op Diagnosis: Lumbar disc herniation with herniated free fragment L4-L5 on the right Post-Op Diagnosis: Same I identified the patient and participated in the time-out.: Yes Procedure Operation Date: 12/20/24 11:25 Actual Procedures Lumbar laminotomy lumbar laminectomy L4-L5 on the right with excision of herniated free fragment. Surgeon Jeronimo Antonio, Reference Assistant Jennifer Singh Estimated Blood Loss 10 Findings Consistent with Post-Op Diagnosis Specimens None Indications This is a 74-year-old female who presents with severe lumbar radiculopathy progressive neurologic deficit and for surgical intervention. Description of Procedure Patient was met with identified informed consent obtained. Patient was then taken to the operative suite underwent intubation placed in a prone position the Amrik table atop the Shar frame. All bony promises well-padded eyes inspected to ensure no external pressure placed upon them. This point lumbar spine was prepped and draped in normal sterile fashion. With the assistance of fluoroscopy notified the L4-L5 to space. Small midline incision was created overlying this region. Sharp dissection with the assistance of Bovie cautery from down to and exposing the interlaminar space at L4-5 in the right. Self- retaining retractors placed. Then performed a lumbar laminectomy on the right with partial medial facetectomy to expose a markedly compressed traversing and exiting nerve root. Several large fragments of free disc material were identified and removed creating significant decompression. Then the area was then copiously irrigated. The exposed dura was covered with versa wrap. Incision was then closed with 1 Vicryl the fascia 2-0 Vicryl subcutaneously and 4 Monocryl for final skin closure. Steri-Strips sterile dressing placed. Patient waken taken PACU stable condition. Please note Jennifer Singh was present out the entire procedure involved the patient positioning complex portion of the surgery and fascial closure. I attest to the content of the Intraoperative Record and any orders documented therein. Any exceptions are noted below.
--- NOTE | 2024-12-20 13:30 | Fluoroscopy Report ---
FL spine 1V any level CLINICAL HISTORY: L4-L5 LAMI COMPARISON STUDY: None FLUOROSCOPY TIME: 8 seconds FLUOROSCOPY IMAGES: 1 EXPOSURE DOSE: 2.5 mGy FINDINGS: Fluoroscopy was provided for lumbar surgery. IMPRESSION: Intraoperative fluoroscopy. ACT 112: Negative or not required by law. Electronically signed by: Chan Patel M.D. 12/20/2024 1:29 PM
[2024-12-20] MEDS: ceFAZolin 2000MG 2,000 MG/15 ML SYR IV ONE (13:49)
[2024-12-20] MEDS: FLOSEAL HEMOSTATIC MATRIX 10ML TOP ONE (13:50)
[2024-12-20] MEDS: ceFAZolin 2,000 MG/15 ML IV PUSH IV ONE (13:50)
[2024-12-20] MEDS ORDERED: DO NOT ADMINISTER PNEUMOCOCCAL VACCINE PRN (14:34)
[2024-12-20] MEDS ORDERED: SOD PHOSPHATE/SOD BIPHOSPHATE ENEMA 132 ML BTL PR PRN (14:34)
[2024-12-20] MEDS ORDERED: diphenhydrAMINE Capsule 25 MG CAP PO PRN (14:34)
[2024-12-20] MEDS ORDERED: NALOXONE HCL 0.4 MG/1 ML VIAL/CARP IV PRN (14:34)
[2024-12-20] MEDS ORDERED: MAGNESIUM HYDROXIDE SUSP 30 ML UDC PO PRN (14:34)
[2024-12-20] MEDS ORDERED: bisacodyL 10 MG SUPP PR PRN (14:34)
[2024-12-20] MEDS ORDERED: HYDROmorphone INJ 1 MG/ML SYRINGE IV PRN (14:34)
[2024-12-20] MEDS ORDERED: FAMOTIDINE 20 MG TAB PO PRN (14:34)
[2024-12-20] MEDS ORDERED: hydrOXYzine HCl 25 MG TAB PO PRN (14:34)
[2024-12-20] MEDS ORDERED: ALUMINUM/MAGNESIUM SUSP 30 ML UDC PO PRN (14:34)
[2024-12-20] MEDS ORDERED: METOCLOPRAMIDE HCL INJ 5 MG/ML 2 ML VIAL IV PRN (14:34)
[2024-12-20] MEDS ORDERED: LORazepam 2 MG/1 ML VIAL IV PRN (14:34)
[2024-12-20] MEDS ORDERED: HYDROmorphone INJ 0.5 MG/0.5 ML SYR IV PRN (14:34)
[2024-12-20] MEDS ORDERED: DO NOT ADMINISTER FLU VACCINE PRN (14:34)
[2024-12-20] MEDS ORDERED: ONDANSETRON 4 MG OD TAB PO PRN (14:34)
[2024-12-20] MEDS ORDERED: traMADol HCL 50 MG TABLET PO PRN (14:34)
[2024-12-20] MEDS ORDERED: ACETAMINOPHEN 1,000 MG/100 ML VIAL IV PRN (14:34)
[2024-12-20] MEDS ORDERED: ACETAMINOPHEN 500 MG TAB PO PRN (14:34)
[2024-12-20] MEDS ORDERED: LORazepam 0.5 MG TAB PO PRN (14:34)
[2024-12-20] MEDS ORDERED: PROMETHAZINE 12.5 MG/50.5 ML BAG IV PRN (14:34)
[2024-12-20] MEDS ORDERED: Nursing to Pharmacy Communication SCH (14:45)
--- NOTE | 2024-12-20 15:49 | Electrocardiogram Report ---
Test Reason : Blood Pressure : */* mmHG Vent. Rate : 60 BPM Atrial Rate : 60 BPM P-R Int : 140 ms QRS Dur : 92 ms QT Int : 400 ms P-R-T Axes : 71 56 47 degrees QTcB Int : 400 ms Normal sinus rhythm Normal ECG No previous ECGs available Confirmed by Han Holm ([id number]) on 12/20/2024 3:49:02 PM Referred By: REFERRED SELF Confirmed By: Han Holm
[2024-12-20] MEDS: ceFAZolin 1000MG 1,000 MG/7.5 ML SYR IV SCH (18:11)
--- NOTE | 2024-12-20 20:30 | Hospitalist Progress Note ---
Date of Service December 20, 2024 Assessment & Plan (1) Acute lumbar radiculopathy: Plan: S/p lumbar laminectomy L4-L5 on the right with excision of herniated free fragment performed by Dr. Antonio 12/20/2024 Patient is doing well postoperatively - given good resolution of pain we will decrease her gabapentin back to 200 mg p.o. BID with a goal of stopping this Patient is prescribed Dilaudid PRN by orthospine therefore we will discontinue her morphine order Hold aspirin postoperatively Plan Hypertension - lisinopril held preoperatively, continue postoperatively Prediabetes - continue metformin, continue glucose checks with insulin as needed due to steroid use, HbA1c 5.8 Hyperlipidemia - continue atorvastatin VTE Prophylaxis - Low risk Diet - regular, n.p.o. after midnight Disposition - admit to med/surg Admission and Anticipated Discharge Date Admission Date: December 18, 2024 Subjective Patient with significant pain relief following right lumbar laminectomy of L4/L5 performed by Dr. Antonio earlier today. She is essentially pain-free from her radicular pain with minimal pain around the surgical site. Her leg was giving out prior to the operation. She is yet to move around to see whether this is still the case. Physical Exam Constitutional: WD/WN, vitals as above Respiratory: normal respiratory effort, lungs clear to auscultation Cardiovascular: RRR, no murmur, no edema Neurologic: 5/5 right plantar and dorsiflexion Results & Data Results & Data Vital Signs (Past 12 Hours) Vital Signs Temp Pulse Pulse Resp BP Pulse Ox O2 Del Method 12/20/24 19:00 36.7 C 79 18 133/79 92 Room Air 12/20/24 16:53 36.7 C 71 18 114/72 93 Room Air 12/20/24 15:59 36.7 C 74 18 137/75 97 Room Air 12/20/24 14:57 67 18 130/66 95 Room Air 12/20/24 14:30 68 18 116/72 95 Room Air 12/20/24 14:00 36.5 C 78 16 121/71 95 Room Air 12/20/24 13:45 36.4 C L 74 18 121/64 95 Room Air 12/20/24 13:35 68 17 102/57 L 95 Room Air 12/20/24 13:25 71 18 135/63 94 Room Air 12/20/24 13:17 36.0 C L 75 20 168/74 H 96 Room Air 12/20/24 10:43 36.7 C 73 20 141/77 H 95 Room Air PG Care Time/CCT Total # of Minutes Spent Total Time Spent with Patient: Total time spent is greater than 50% in coordination of care (as documented) at patient's floor/unit and/or counseling patient: Coding Level of Care Code 06779 SUB INP/OBS CARE 2/35MIN Diagnoses Acute lumbar radiculopathy M54.16
[2024-12-20] MEDS: DOCUSATE SODIUM/SENNA 50/8.6MG TAB PO SCH (21:35)
[2024-12-20] MEDS: GABAPENTIN 100 MG CAP PO SCH (21:35)
[2024-12-21 03:23] VITALS: O2SAT 95
[2024-12-21] MEDS: POLYETHYLENE (MIRALAX) 17 GM PACK PO SCH (06:14)
[2024-12-21 07:11] VITALS: BP 124/79; PULSE 77; RESP 16; TEMP 98.1
[2024-12-21] MEDS: lisinopril 10 MG TAB PO SCH (08:21)
[2024-12-21] MEDS: dexAMETHasone 6 MG in SYRINGE 0 ML IV SCH (08:23)
--- NOTE | 2024-12-21 12:02 | Orthopedic Progress Note ---
Date of Service December 21, 2024 Assessment & Plan (1) Lumbar disc herniation with radiculopathy: Plan: At this time she has progressed remarkably from her surgery. Will continue with light activity. Restrictions reviewed. From orthopedic standpoint she is safe to return home. She will follow-up in our office in 2 weeks for postop eval. Admission and Anticipated Discharge Date Admission Date: December 18, 2024 Subjective Right leg symptoms markedly improved. Pain well-controlled. Physical Exam Physical Exam: Patient is in chair at the bedside. Is comfortable. Has marked improvement of strength testing the right lower extremity. Results & Data Vital Signs (Past 12 Hours) Vital Signs Temp Pulse Resp BP Pulse Ox O2 Del Method 12/21/24 07:07 36.7 C 77 16 124/79 95 Room Air 12/21/24 03:00 36.6 C 76 18 123/79 95 Room Air
--- NOTE | 2024-12-21 14:21 | Discharge Summary ---
Discharge Summary Date of Service December 21, 2024 Principal Dx & Hospital Course #1 = Principal Diagnosis (1) Acute lumbar radiculopathy: 74-year-old female who scented with acute lumbar radiculopathy and is s/p lumbar laminectomy L4-L5 and excision of herniated free fragment performed by Dr. Antonio 12/20/2024. Following surgical intervention she had significant pain relief and was almost completely pain-free. Doing well postoperatively. No concerns on chart review or on 12/20/2024. Patient discharged by orthopedic team prior to being evaluated by hospitalist 12/21 however no acute concerns from lab support technician and was prescribed tramadol on discharge. Will have follow-up with orthopedics. All vital signs stable and within normal limits at time of discharge. Light activity restrictions were discussed with her from an orthopedic standpoint, and 2-week follow-up visit was being scheduled. Admission HPI Per Admitting Provider Aminah Mcconnell is a 74 year old female who presents to the ER with right sided back and leg pain. Ongoing symptoms since November 27. Initially diagnosed with ilial tibial band syndrome and tried alternating acetaminophen and ibuprofen but symptoms slowly progressively got worse. She [place] [facility] [place] and arranged for MRI of her back and started on gabapentin which also hasn't been working. Her pain has slowly progressively got worse. No perianal numbness, loss of bladder or bowel control, fever or chills. Discharge Exam Not seen day of discharge, see below Discharge Plan Discharge Items Patient Disposition: Home - Self-Care Reason For Visit: LUMBAR RADICULOPATHY Discharge Diagnosis: Lumbar disc herniation with radiculopathy and motor deficit Activity: As commented below Non-emergency contact: Primary Care Provider Call non-emergency contact if: you have any medication questions Follow-up/Referrals: Jeronimo Antonio DO [Surgeon] - 01/02/25 8:00 am Shilpa Patel PA-C [Primary Care Provider] - Diet: Regular Addtl Attending Provider Instructions: ACTIVITY RECOMMENDATIONS: SELF CARE INSTRUCTIONS AFTER A LAMINECTOMY 1. No prolonged sitting (less than 30 minutes for the first 3 weeks after surgery). 2. No bending, lifting more than 5 pounds, or twisting (roll like a log when turning in bed). 3. You may shower 3 days after surgery if no drainage from wound. Thoroughly dry wound. Do not soak in the tub. 4. Please walk as much as you can for exercise. Gradually increase the distance that you walk as your endurance increases. 5. You may drive in 7-10 days if you are comfortable and no longer requiring pain medications. 6. You may return to previous diet. SPECIAL CARE INSTRUCTIONS: VERY IMPORTANT TO READ AND REVIEW A. Your surgical incision has been closed with a cosmetic suture under the skin that will dissolve in about 6 weeks. In 14 days, you can use a pair of clean scissors and cut the suture that is left outside of the skin at the ends of your incision. B. Complications are uncommon, but please contact us if you have any signs or symptoms of: 1. wound infection (fever higher than 102.5 degrees F, redness, separation of wound, drainage, or increasing pain from the incision) 2. blood clots in legs (pain, swelling, redness and warmth in legs) 3. urinary tract infection (fever higher than 102.5 degrees, burning upon urination or increased frequency of urination) 4. nerve problems (inability to walk on your toes or heels, numbness, loss of bowel or bladder control) 5. any other symptoms that concern you. C. Please call the office at if you have any concerns or questions about your operation or recovery. MANAGING PAIN AFTER SPINAL SURGERY 1. Narcotic medication is intended for short-term use and will be provided for surgical pain. Surgical pain usually lasts for a period of 4-6 weeks. Narcotic medication includes Percocet, Vicodin, Darvocet, Tylenol #3 or Lortab. 2. Longer-term pain is more appropriately treated with non-narcotic medication such as Tylenol ES. 3. Muscle spasm is not appropriately treated with narcotics. Muscle relaxers such as Soma, Flexeril or Skelaxin can be used along with Tylenol ES. 4. Remember that we all live with some "aches and pains". This is not unusual or uncommon after an injury or as we get older. 5. We will provide appropriate medication within the normal guidelines of their prescribed use. We will also be very cautious and aware of potential abuse and extended duration of patients' medication needs. 6. Please allow 2-3 days to process refills. Prescriptions will not be mailed but must be picked up at the office. FOLLOW UP VISIT: Keep your scheduled follow-up appointment. Any questions, please call the office at . Pending Studies at Discharge: No Stand-Alone Forms: [facility] [employer] Smoking Cessation Medications and DC Order Prescriptions: New tramadol 50 mg tablet 50 mg PO Q6H PRN (Reason: pain, moderate) Qty: 30 0RF Continued atorvastatin 20 mg tablet 20 mg PO DAILY levothyroxine 50 mcg tablet 50 mcg PO DAILY cetirizine 10 mg Tablet 10 mg PO DAILY aspirin 81 mg Tablet,Delayed Release (Dr/Ec) 81 mg PO Q OTHER DAY lisinopril 10 mg Tablet 10 mg PO DAILY magnesium 250 mg Tablet 500 mg PO DAILY prednisone 20 mg tablet 20 mg PO UD Rx Instructions: Start Date 12/16/24: Take 20mg by mouth twice daily x 5 days; 20mg by mouth once daily x 5 days gabapentin 300 mg capsule 300 mg PO BID metformin 500 mg tablet 500 mg PO QAM Discharge Orders: Discharge Order (Routine); Ordered 12/21/24 Ordered By: Jeronimo Antonio Admission Data Admit Date/Time: 12/18/24 18:34 Attending Provider: Ramana Mirza Admit Provider: Jonn Ross Primary Care Provider: Shilpa Patel Other Providers: Jonn Ross; Jeronimo Antonio; Jack Judge Other Interventions: Discharge Summary Assessment (RN) Last Done: 12/21/24 12:16 Hospital Stay Data Consultations 12/18/24 17:35 ED Decision to Admit Stat 12/19/24 07:03 Consult Orthopedic Spine Surgery Routine Consult Pain Management Routine Procedures Performed Operation Date: 12/20/24 11:25 Actual Procedures p Right L4-L5 Lumbar Laminectomy(Right) - Jeronimo Antonio DO Diagnostic Imagining Performed 12/18/24 09:54 CT lumbar spine wo con Stat 12/18/24 14:24 MRI Lumbar Spine [MR lumbar spine wo con] Stat 12/20/24 11:25 FL spine 1V any level Routine Pending Results Patient Have Any Pending Studies at Discharge: No Discharge Instructions Given to Patient (Per Discharging Provider) ACTIVITY RECOMMENDATIONS: SELF CARE INSTRUCTIONS AFTER A LAMINECTOMY 1. No prolonged sitting (less than 30 minutes for the first 3 weeks after surgery). 2. No bending, lifting more than 5 pounds, or twisting (roll like a log when turning in bed). 3. You may shower 3 days after surgery if no drainage from wound. Thoroughly dry wound. Do not soak in the tub. 4. Please walk as much as you can for exercise. Gradually increase the di stance that you walk as your endurance increases. 5. You may drive in 7-10 days if you are comfortable and no longer requiring pain medications. 6. You may return to previous diet. SPECIAL CARE INSTRUCTIONS: VERY IMPORTANT TO READ AND REVIEW A. Your surgical incision has been closed with a cosmetic suture under the skin that will dissolve in about 6 weeks. In 14 days, you can use a pair of clean scissors and cut the suture that is left outside of the skin at the ends of your incision. B. Complications are uncommon, but please contact us if you have any signs or symptoms of: 1. wound infection (fever higher than 102.5 degrees F, redness, separation of wound, drainage, or increasing pain from the incision) 2. blood clots in legs (pain, swelling, redness and warmth in legs) 3. urinary tract infection (fever higher than 102.5 degrees, burning upon urination or increased frequency of urination) 4. nerve problems (inability to walk on your toes or heels, numbness, loss of bowel or bladder control) 5. any other symptoms that concern you. C. Please call the office at if you have any concerns or questions about your operation or recovery. MANAGING PAIN AFTER SPINAL SURGERY 1. Narcotic medication is intended for short-term use and will be provided for surgical pain. Surgical pain usually lasts for a period of 4-6 weeks. Narcotic medication includes Percocet, Vicodin, Darvocet, Tylenol #3 or Lortab. 2. Longer-term pain is more appropriately treated with non-narcotic medication such as Tylenol ES. 3. Muscle spasm is not appropriately treated with narcotics. Muscle relaxers such as Soma, Flexeril or Skelaxin can be used along with Tylenol ES. 4. Remember that we all live with some "aches and pains". This is not unusual or uncommon after an injury or as we get older. 5. We will provide appropriate medication within the normal guidelines of their prescribed use. We will also be very cautious and aware of potential abuse and extended duration of patients' medication needs. 6. Please allow 2-3 days to process refills. Prescriptions will not be mailed but must be picked up at the office. FOLLOW UP VISIT: Keep your scheduled follow-up appointment. Any questions, please call the office at . Total Time Total Time Spent Total Time Spent (In Minutes): Time spend day of discharge 15 minutes including direct patient care, documentation, review of labs and images, and coordination of care. Coding Level of Care Code None Diagnoses Acute lumbar radiculopathy M54.16
== END 2024-12-21 13:49 | disposition home or self-care (01) | DRG 520 ==
LOC: ED 09:06 → SUATTDRO 18:34 → EDINP 18:34 → 3W 20:36